=== PATIENT | female | born 1995 | race Caucasian/White ===

== ENCOUNTER 2018-02-14 10:20 | Emergency (ER) | payer OTHER ==
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
--- OUTSIDE RECORDS SUMMARY | 2018-02-14 10:23 | XMS REPORT | Summary of Care ---
:1995 Author Organization [facility] Address [address] [place] [address]- Encounter HQ Andrés_kimmie(FIN) [id number] Date(s): 03/31/17 - 03/31/[address] Professional Services provided by [facility] [place] [address]- Discharge Disposition: Home or Self Care Attending Physician: Wei Lock MD Vital Signs Most recent to oldest 1 2 3 [Reference Range]: Temperature Oral [96.4-99.1 97.6 DegF 97.8 DegF DegF] (03/31/17 4:39 AM) (03/31/17 1:56 AM) Blood Pressure [90-140/60-90 122/71 mmHg 120/55 mmHg 135/83 mmHg mmHg] (03/31/17 4:39 AM) (03/31/17 3:23 AM) (03/31/17 2:19 AM) Respiratory Rate [14-20 18 BRMIN 20 BRMIN 20 BRMIN BRMIN] (03/31/17 4:39 AM) (03/31/17 3:23 AM) (03/31/17 2:19 AM) Peripheral Pulse Rate 96 bpm 102 bpm 110 bpm [60-100 bpm] (03/31/17 4:39 AM) *HI* *HI* (03/31/17 3:23 AM) (03/31/17 2:19 AM) Problem List No data available for this section Allergies, Adverse Reactions, Alerts Substance Reaction Severity Status NKDA Active Medications morphine Sulfate 4 mg, Route: IVP, ONCE, kg, Priority: STAT, Start date: 03/31/17 2:23:00 [employer], Stop date: 03/31/17 2:23:00 [employer] Start Date: 03/31/17 Stop Date: 03/31/17 Status: Completedmorphine Sulfate 4 mg, Route: IVP, ONCE, kg, Priority: STAT, Start date: 03/31/17 3:16:00 [employer], Stop date: 03/31/17 3:16:00 [employer] Start Date: 03/31/17 Stop Date: 03/31/17 Status: Completed[place] 5/325 oral tablet 1 tab, Route: PO, Drug Form: TAB, kg, ONCE, STAT, Start date: 03/31/17 4:32:00 [employer], Stop date: 03/31/17 4:32:00 [employer] Start Date: 03/31/17 Stop Date: 03/31/17 Status: Completedtramadol 50 mg oral tablet 50 mg=1 tab, PO, Q6H, PRN Pain, X 10 day, # 20 tab, 0 Refill(s) Start Date: 03/31/17 Stop Date: 04/10/17 Status: OrderedZofran 4 mg, Route: IVP, Drug form: INJ, ONCE, kg, Priority: STAT, Start date: 2:23:00 [employer], Stop date: 03/31/17 2:23:00 [employer] Start Date: 03/31/17 Stop Date: 03/31/17 Status: Completed Results ELECTROLYTES Most recent to oldest [Reference Range]: 1 Sodium Lvl [135-145 mEq/L] 137 mEq/L (03/31/17 3:05 AM) Potassium Lvl [3.5-5.1 mEq/L] 3.7 mEq/L (03/31/17 3:05 AM) Chloride Lvl [95-109 mEq/L] 103 mEq/L (03/31/17 3:05 AM) CO2 [24-32 mEq/L] 25 mEq/L (03/31/17 3:05 AM) AGAP [10.0-20.0 mEq/L] 12.7 mEq/L (03/31/17 3:05 AM) CHEM PANEL Most recent to oldest [Reference Range]: 1 Creatinine Lvl [0.50-1.40 mg/dL] 0.76 mg/dL (03/31/17 3:05 AM) eGFR 113 mL/min/1.73m2 1 *NA* (03/31/17 3:05 AM) BUN [7-22 mg/dL] 11 mg/dL (03/31/17 3:05 AM) Glucose Lvl [70-99 mg/dL] 111 mg/dL *HI* (03/31/17 3:05 AM) Calcium Lvl [8.5-10.5 mg/dL] 8.8 mg/dL (03/31/17 3:05 AM) 1Result Comment: The eGFR is calculated using the CKD-EPI formula. In most young , healthy individualsthe eGFR will be >90 mL/min/1.73m2. The eGFR declines with age. An eGFR of 60-89 may be normal insome populations, particularly the elderly, for whom the CKD-EPI formula has not been extensively validated. Use of the eGFR is not recommended in the following populations: Individuals with unstable creatinine concentrations, including patients and those with serious co-morbid conditions. Patients with extremes in muscle mass or diet. The data above are obtained from the National Kidney Disease Education Program ( NKDEP) which additionally recommends that when the eGFR is used in patients with extremes of body mass index for purposesof drug dosing, the eGFR should be multiplied by the estimated BMI.IMMUNOLOGY Most recent to oldest [Reference Range]: 1 CDC HIV 4th GEN [Negative] Negative *NA* (03/31/17 9:20 AM) HEMATOLOGY Most recent to oldest [Reference Range]: 1 WBC [3.7-10.4 K/CMM] 14.3 K/CMM *HI* (03/31/17 3:05 AM) RBC [4.20-5.40 M/CMM] 4.23 M/CMM (03/31/17 3:05 AM) Hgb [12.0-16.0 g/dL] 12.9 g/dL (03/31/17 3:05 AM) Hct [36.0-48.0 %] 38.6 % (03/31/17 3:05 AM) MCV [80.0-98.0 fL] 91.2 fL (03/31/17 3:05 AM) MCH [27.0-31.0 pg] 30.5 pg (03/31/17 3:05 AM) MCHC [32.0-36.0 g/dL] 33.4 g/dL (03/31/17 3:05 AM) RDW [11.5-14.5 %] 13.6 % (03/31/17 3:05 AM) Platelet [133-450 K/CMM] 230 K/CMM (03/31/17 3:05 AM) MPV [7.4-10.4 fL] 8.6 fL (03/31/17 3:05 AM) Segs [45.0-75.0 %] 93.2 % *HI* (03/31/17 3:05 AM) Lymphocytes [20.0-40.0 %] 0.7 % *LOW* (03/31/17 3:05 AM) Monocytes [2.0-12.0 %] 5.8 % (03/31/17 3:05 AM) Basophils [0.0-1.0 %] 0.3 % (03/31/17 3:05 AM) Segs-Bands # [1.5-8.1 K/CMM] 13.3 K/CMM *HI* (03/31/17 3:05 AM) Lymphocytes # [1.0-5.5 K/CMM] 0.1 K/CMM *LOW* (03/31/17 3:05 AM) Monocytes # [0.0-0.8 K/CMM] 0.8 K/CMM (03/31/17 3:05 AM) RBC Morph Normal (03/31/17 3:05 AM) Plt Morph Normal (03/31/17 3:05 AM) PT [12.0-14.7 seconds] 14.2 seconds (03/31/17 3:05 AM) INR [0.85-1.17] 1.10 (03/31/17 3:05 AM) PTT [22.9-35.8 seconds] 24.8 seconds (03/31/17 3:05 AM) ACT (TEG) Rapid [86-118 seconds] 97 seconds (03/31/17 3:05 AM) [place] Rapid 0.3 minutes *NA* (03/31/17 3:05 AM) R-time Rapid [0.4-0.7 minutes] 0.5 minutes (03/31/17 3:05 AM) K-time Rapid [0.6-2.3 minutes] 0.9 minutes (03/31/17 3:05 AM) Angle Rapid [64-80 degrees] 78 degrees (03/31/17 3:05 AM) Max Amplitude Rapid [52-71 mm] 64 mm (03/31/17 3:05 AM) G-value Rapid [5.0-11.6 K d/sc] 8.9 K d/sc (03/31/17 3:05 AM) Estimated % Lysis Rapid [0.0-7.5 %] 3.8 % 1 (03/31/17 3:05 AM) 1Result Comment: "Significant Findings called to Kallie Jarquin_at 03/31/2017 04:11_ _by RM__.Read Back OK." Immunizations No data available for this section Procedures No data available for this section Social History Social History Type Response Smoking Status Never smoker; Previous treatment: None; Ready to change: No; Concerns about tobacco use in household: No; Exposure to Tobacco Smoke None; Cigarette Smoking Last 365 Days No; Reg Smoking Cessation Counseling No Assessment and Plan No data available for this section
--- OUTSIDE RECORDS SUMMARY | 2018-02-14 10:23 | XMS REPORT | Summary of Care ---
:1995 Author Name Cynthia Winchester Address Unavailable Unavailable , Care Team Providers Name Role Phone AVERY MULLEN Unavailable Unavailable Functional Status Name Dates Details Functional status health issues are not documented Status: Name Dates Details Cognitive status health issues are not documented Status: Problems Name Dates Details Acute right ankle pain (719.47, M25.571) Status: Active Fracture of medial malleolus, left, closed (824.0, S82.52XA) Status: Active Medications Name Dates Details Medications not documented Allergies and Adverse Reactions Name Dates Details Allergy history not documented Status: Procedures Procedure Dates Details [U] XRAY ANKLE MIN 3 VWS LEFT [id number] Date: 19-May-2017 Immunization Name Dates Details Immunizations not documented Social History Name Dates Details Unknown if ever smoked Vital Signs Date Test Result Details No Known Vitals to report Results Date Description Value Details [id number] [U] XRAY ANKLE MIN 3 VWS LEFT [id number] XR ANKLE MIN 3 VWS LEFT Images acquired, not reported on this accession number. Plan of Care Name Dates Details Planned Observations Planned Goals not documented Planned Encounters Appointment; AVERY THOMAS P.A. On: 20-May-2017 16:00 Interventions Provided Labs/Procedures/Imaging[U] XRAY ANKLE MIN 3 VWS LEFT [id number]; To Be Done: 20 May 2017 Instructions Name Dates Details Instructions not documented Encounters Appointment; AVERY THOMAS P.A. On: 08-Apr-2017 11:00 Encounter Diagnosis: Problem not documented Appointment; AVERY THOMAS P.A. On: 21-Apr-2017 13:15 Encounter Diagnosis: Problem not documented Appointment; AVERY THOMAS P.A. On: 22-Apr-2017 15:15 Encounter Diagnosis: Problem not documented Appointment; AVERY THOMAS P.A. On: 20-May-2017 16:00 Encounter Diagnosis: Problem not documented
--- NOTE | 2018-02-14 11:39 | EDPHYS ---
Physician Documentation [facility] Unit Name: Gladis eMza Age: 22 yrs Sex: Female : 1995 Arrival Date: 02/14/2018 Time: 10:23 Bed 12 Private MD: Jim Tolbert B ED Physician Leo Bob HPI: 02/14 11:25 This 22 yrs old Female presents to ER via Ambulatory with complaints of jmm Breast Problem. 11:25 breast pain. Onset: The symptoms/episode began/occurred gradually, 1 day(s) ago. This jmm is a 22 year old female with no chronic medical conditions that presents to the ED with complaints of breast pain. Patient states having mastitis with previous child. Patient denies fever but complains of chills. Patient states she is unable to express mild without a significant amount of pain. . 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 - Social history:: Smoking status: Patient/guardian denies using tobacco. - Ebola Screening: : No symptoms or risks identified at this time. ROS: 11:25 Constitutional: Negative for fever, chills, and weight loss, Cardiovascular: Negative jmm for chest pain, palpitations, and edema, Respiratory: Negative for shortness of breath, cough, wheezing, and pleuritic chest pain. 11:25 All other systems are negative. Exam: 11:25 Constitutional: This is a well developed, well nourished patient who is awake, alert, jmm and in no acute distress. Head/Face: atraumatic. Eyes: EOMI, no conjunctival erythema appreciated ENT: Moist Mucus Membranes Neck: Trachea midline, Supple 11:25 Cardiovascular: Regular rate and rhythm. No edema appreciated Respiratory: Normal respirations, no respiratory distress appreciated MS/ Extremity: Moves all extremities, no obvious deformities appreciated, no edema noted to the lower extremities Neuro: Awake and alert, normal gait Psych: Behavior is normal, Mood is normal, Patient is cooperative and pleasant 11:25 Chest/axilla: Breasts: engorged and diffusely tender to palpation, mild erythema noted to the left breast above the anderson. Vital Signs: 10:35 BP 118 / 78; Pulse 99; Resp 16 S; Temp 97.8(TE); Pulse Ox 99% on R/A; Weight 56.7 kg aa5 (R); Height 5 ft. 4 in. (162.56 cm) (R); Pain 7/10; 10:35 Body Mass Index 21.46 (56.70 kg, 162.56 cm) aa5 MDM: 11:05 Patient medically screened. [facility] 11:37 Data reviewed: vital signs, nurses notes. Counseling: I had a detailed discussion with [facility] the patient and/or guardian regarding: the historical points, exam findings, and any diagnostic results supporting the discharge/admit diagnosis, the need for outpatient follow up, to return to the emergency department if symptoms worsen or persist or if there are any questions or concerns that arise at home. 11:37 ED course: Labor and route sales delivery driver consulted patient in the ED. Patient prescribed [facility] dicloxacillin and advised to follow up with her ob for further evaluation. Patient understood and agrees with the plan of care. . Administered Medications: No medications were administered Disposition: 13:39 Co-signature as Attending Physician, Leo Bob MD. rn Disposition: 02/14/18 11:38 Discharged to Home. Impression: Breast engorgement of . - Condition is Stable. - Discharge Instructions: and Mastitis. - Prescriptions for Dicloxacillin 500 mg Oral Capsule - take 1 capsule by ORAL route every 6 hours for 10 days; 40 capsule. - Medication Reconciliation Form, Thank You Letter, Antibiotic Education, Prescription Opioid Use form. - Follow up: Jim Tolbert MD; When: 2 - 3 days; Reason: Recheck today's complaints, Continuance of care, Re-evaluation by your physician. Signatures: Hank Ramos PA PA [facility] Leo Bob MD MD rn Calderon, Audri, RN RN aa5 Olya Jacob RN RN hb Corrections: (The following items were deleted from the chart) 11:43 11:38 02/14/2018 11:38 Discharged to Home. Impression: Breast engorgement of . hb Condition is Stable. Forms are Medication Reconciliation Form, Thank You Letter, Antibiotic Education, Prescription Opioid Use. Follow up: Jim Tolbert; When: 2 - 3 days; Reason: Recheck today's complaints, Continuance of care, Re-evaluation by your physician. librado
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
[2018-02-14 11:47] VITALS: BP 118/78; TEMP 97.8; O2SAT 99
== END 2018-02-14 11:43 | disposition home or self-care (01) ==
LOC: ER 10:20
DX: O92.79 Other disorders of lactation (principal)
CPT/HCPCS: 99282

== ENCOUNTER 2019-07-27 18:21 | Emergency (ER) | payer SELFPAY ==
--- OUTSIDE RECORDS SUMMARY | 2019-07-27 18:23 | XMS REPORT | Summary of Care ---
:1995 Author Organization [facility] Address [address] [place] [id number] Care Team Providers Name Role Phone KodyrosemarieRinkuKayli Lydamian DELIVERY LEAD Primary Care Provider Reason for Visit Reason Comments LAB Encounter Details Date Type Department Care Team Description 06/23/2019 [facility], WHCNP [address] [place] [address] Neutropenia, unspecified type; [place] [facility], [facility] Thrombocytopenia, unspecified [address] [place] [address] Allergies No Known Allergiesdocumented as of this encounter (statuses as of 06/23/2019) Medications Medication Sig Dispensed Refills Start Date End Date Status LOESTRIN FE Take 1 tablet by 1 Package 2 05/27/2019 Active (MICROGESTIN FE 05/31) 1 mouth daily. mg-20 mcg (21)/75 mg (7) tabletIndications: Encounter for other general counseling or advice on contraception, Menorrhagia with irregular cycle documented as of this encounter (statuses as of 06/23/2019) Active Problems Problem Noted Date Encounter for other general counseling or advice on contraception 05/27/2019 Menorrhagia with irregular cycle 05/27/2019 Pap smear abnormality of cervix/human papillomavirus (HPV) positive 11/09/2018 LGSIL on Pap smear of cervix 11/09/2018 documented as of this encounter (statuses as of 06/23/2019) Resolved Problems Problem Noted Date Resolved Date Venereal disease contact 09/29/2018 05/27/2019 Echogenic focus of heart, , affecting care of mother, 06/25/20172019 antepartum Overview: Needs repeat usg around 08/10/17-order at next visit on 07/10/17. Follow up completed 08/06/17-no abnormal findings UTI in 06/13/2017 05/27/2019 Overview: ERASMO neg Susceptible to varicella (non-immune), currently 06/11/20172019 High risk , antepartum 06/10/2017 05/27/2019 Uterine size-date discrepancy, antepartum 06/10/2017 08/21/2017 Insufficient antepartum care 06/10/2017 05/27/2019 History of depression, currently 06/10/2017 05/27/2019 Tylenol ingestion 01/02/2013 06/10/2017 documented as of this encounter (statuses as of 06/23/2019) Immunizations Name Administration Dates Next Due HPV9 11/09/2018 Tdap 08/21/2017 documented as of this encounter Social History Tobacco Use Types Packs/Day Years Used Date Former Smoker Cigarettes 0.5 3 06/10/2014 - 04/25/2017 Smokeless Tobacco: Never Used Alcohol Use Drinks/Week oz/Week Comments No Sex Assigned at Date Recorded Not on file Job Start Date Occupation Industry Not on file Not on file Not on file Travel History Travel Start Travel End No recent travel history available. documented as of this encounter Last Filed Vital Signs Not on filedocumented in this encounter Plan of Treatment Date Type Specialty Care Team Description 08/26/2019 Office Visit [facility] Michelle Ponce, DELIVERY LEAD [address] [place] [address] [phone] Name Type Priority Associated Diagnoses Order Schedule CBC WITH DIFFERENTIAL LAB Routine Neutropenia, unspecified type Ordered: Health Maintenance Due Date Last Done Comments HPV VACCINES (2 - Female 09/03/2019 11/09/2018 Postponed from 3-dose series) 12/07/2018 (Refused) MENINGOCOCCAL B VACCINES (1 11/11/2019 Postponed from of 2 - Risk Bexsero 2-dose 2006 (Insurance / series) Financial) VARICELLA VACCINES (1 of 2 11/11/2019 Postponed from - 2-dose childhood series) 1997 (Insurance / Financial) CHLAMYDIA SCREENING 05/25/2020 05/25/2019, 03/31/2019, 03/18/2019, Additional history exists INFLUENZA VACCINE (#1) 2020 Postponed from 01/10/2019 (Refused) PAP SMEAR 02/11/2022 02/11/2019 DTaP,Tdap,and Td Vaccines 08/22/2027 08/21/2017 (2 - Td) MENINGOCOCCAL VACCINE Aged Out No longer eligible based on patient's age to complete this topic PNEUMOCOCCAL 0-64 YEARS Aged Out No longer eligible COMBINED SERIES based on patient's age to complete this topic documented as of this encounter Results Not on filedocumented in this encounter Visit Diagnoses Diagnosis Neutropenia, unspecified type Thrombocytopenia, unspecified documented in this encounter Insurance Payer Benefit Plan Subscriber ID Effective Phone Address Type / Group Dates PENDING SALE TO [facility] xxxxxxxxx 2018-Prese [phone] Medicaid WOMEN nt [address] [place] [address] [address] [place] (Home) [place] [address] documented as of this encounter Advance Directives Name Relationship Healthcare Agent Relationship Communication Ai Alejandrobrook Grandparent Primary healthcare agent
--- OUTSIDE RECORDS SUMMARY | 2019-07-27 18:23 | XMS REPORT | Summary of Care ---
:1995 Author Organization [facility] - Health Address [address] [place] [address] Care Team Providers Name Role Phone Kayli Erazo [facility] Primary Care Provider Encounter Details Date Type Department Care Team Description 11/11/2018 Patient Secure Msg [facility] MyChart Messages Doctor Unassigned, [address] [place] [address] [place] [address] [place] [address] [place] [address] Allergies No Known Allergiesdocumented as of this encounter (statuses as of 12/12/2018) Medications Medication Sig Dispensed Refills Start Date End Date Status busPIRone 15 mg tablet TK 1 T PO BID. 1 10/14/2018 Active LO LOESTRIN FE 1 mg-10 Take 1 tablet by 3 10/06/2018 Active mcg (24)/10 mcg (2) per mouth daily. tablet propranolol 10 mg Take 10 mg by 0 09/28/2018 Active tablet mouth 2 (two) times daily. SERTraline 50 mg tablet TK 1 T PO QHS 1 10/14/2018 Active documented as of this encounter (statuses as of 12/12/2018) Active Problems Problem Noted Date Pap smear abnormality of cervix/human papillomavirus (HPV) positive 11/09/2018 LGSIL on Pap smear of cervix 11/09/2018 Venereal disease contact 09/29/2018 Echogenic focus of heart, , affecting care of mother, antepartum 2017 Overview: Needs repeat usg around 08/10/17-order at next visit on 07/10/17. Follow up completed 08/06/17-no abnormal findings UTI in 06/13/2017 Overview: ERASMO neg Susceptible to varicella (non-immune), currently 06/11/2017 High risk , antepartum 06/10/2017 Insufficient antepartum care 06/10/2017 History of depression, currently 06/10/2017 documented as of this encounter (statuses as of 12/12/2018) Resolved Problems Problem Noted Date Resolved Date Uterine size-date discrepancy, antepartum 06/10/2017 08/21/2017 Tylenol ingestion 01/02/2013 06/10/2017 documented as of this encounter (statuses as of 12/12/2018) Immunizations Name Administration Dates Next Due HPV9 [...] Treatment Date Type Specialty Care Team Description 01/12/2019 [facility]2019 [facility] Health Maintenance Due Date Last Done Comments PAP SMEAR 2017 HPV VACCINES (2 - Female 12/07/2018 11/09/2018 3-dose series) INFLUENZA VACCINE 01/10/2019 CHLAMYDIA SCREENING 11/10/2019 11/09/2018, 09/29/2018, 06/10/2017 MENINGOCOCCAL B VACCINES (1 11/11/2019 Postponed from 2006 of 2 - Risk Bexsero 2-dose (Insurance / Financial) series) VARICELLA VACCINES (1 of 2 - 11/11/2019 Postponed from 2009 13+ 2-dose series) (Insurance / Financial) DTaP,Tdap,and Td Vaccines (2 08/22/2027 08/21/2017 - Td) MENINGOCOCCAL VACCINE Aged Out No longer eligible based on patient's age to complete this topic PNEUMOCOCCAL 0-64 YEARS Aged Out No longer eligible based COMBINED SERIES on patient's age to complete this topic documented as of this encounter Results Not on filedocumented in this encounter Insurance Payer Benefit Plan Subscriber ID Effective Phone Address Type / Group Dates [facility] xxxxxxxxx 2018-Prese [phone] Medicaid WOMEN nt [address] [place] [address] documented as of this encounter Advance Directives Name Relationship Healthcare Agent Relationship Communication Ai Santana Grandparent Primary healthcare agent
--- OUTSIDE RECORDS SUMMARY | 2019-07-27 18:23 | XMS REPORT | Summary of Care ---
:1995 Author Organization [facility] Address [address] [place] [address] Care Team Providers Name Role Phone KodyrosemarieRinkuKayli Lydamian SECURITY OPERATIONS ENGINEER Primary Care Provider Reason for Visit Reason Comments LAB Encounter Details Date Type Department Care Team Description 06/23/2019 Restaurant Floor Manager [facility] WHC[facility] [address] [place] [address] Neutropenia, unspecified type; [place] [facility], [facility] Thrombocytopenia, unspecified [address] [place] [address] Allergies No Known Allergiesdocumented as [...] 08/26/2019 Office Visit [facility] Michelle Ponce, SECURITY OPERATIONS ENGINEER [address] [place] [address] [phone] Name Type Priority Associated Diagnoses Date/Time CBC WITH DIFF LAB Routine Neutropenia, unspecified 06/23/2019 1:15 PM HYDRAULIC MINER BLASTING type CBC WITH DIFFERENTIAL LAB Routine Neutropenia, unspecified 06/23/2019 1: 15 PM HYDRAULIC MINER BLASTING type Health Maintenance Due Date Last Done Comments [...] ID Effective Phone Address Type / Group [facility] xxxxxxxxx 2018-Prese [phone] Medicaid WOMEN nt 2003 [place] [address] documented as of this encounter Advance Directives Name Relationship Healthcare Agent Relationship Communication Ai Alejandrobrook Grandparent Primary healthcare agent
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
--- OUTSIDE RECORDS SUMMARY | 2019-07-27 18:24 | XMS REPORT | Summary of Care ---
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 History of thyroid disorder [address] [place], [place] Em[place] A [address] [place], [place] [address] Allergies No Known Allergiesdocumented as of this encounter (statuses as of 05/25/2019) Medications Medication Sig Dispensed Refills Start Date End Date Status busPIRone 15 mg TK 1 T PO 1 10/14/2018 Active tablet BID. propranolol 10 mg Take 10 mg by 0 09/28/2018 Active tablet mouth 2 (two) times daily. SERTraline 50 mg TK 1 T PO QHS 1 10/14/2018 Active tablet LO LOESTRIN FE 1 Take 1 tablet 3 10/06/2018 05/25/2019 Discontinued mg-10 mcg (24)/10 by mouth mcg (2) per tablet daily. documented as of this encounter (statuses as of 05/25/2019) Active Problems Problem Noted Date Pap smear [...] as of this encounter (statuses as of 05/25/2019) Resolved Problems Problem Noted Date Resolved Date Uterine size-date discrepancy, antepartum 06/10/2017 08/21/2017 Tylenol ingestion 01/02/2013 06/10/2017 documented as of this encounter (statuses as of 05/25/2019) Immunizations Name Administration Dates Next Due HPV9 [...] Sign Reading Time Taken Comments Blood Pressure 126/81 05/25/2019 10:37 AM SCREEN TENDER Pulse 93 05/25/2019 10:37 AM SCREEN TENDER Temperature 36.6 C (97.8 F) 05/25/2019 10:37 AM SCREEN TENDER Respiratory Rate 16 05/25/2019 10:37 AM SCREEN TENDER Oxygen Saturation - - Inhaled Oxygen Concentration - - Weight 54.1 kg (119 lb 4 oz) 05/25/2019 10:37 AM SCREEN TENDER Height 162.6 cm (5' 4") 05/25/2019 10:37 AM SCREEN TENDER Body Mass Index 20.47 05/25/2019 10:37 AM SCREEN TENDER documented in this encounter Progress Notes Michelle Ponce, TORI - 05/25/2019 10:15 AM CST Chief complaint: Chief Complaint 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 Pt reports she went to the ER last year for heart palpitations and a panic attack and was told she had hyperthyroidism and was started on medication. When she followed up with a specialist after that ER visit, she was told she hadbeen diagnosed incorrectly and stopped the medication. For the last 3-4 months she has been having heavy, irregular menses. She reports it seems like she never stops bleeding. She did not start OCPs inNov2018 as recommended. Is not currently using contraception and desires to conceive. Histories OB History Para Term AB Living [...] file Gets together: Not on file Attends anabaptism service: Not on file Active member of [...] Activity Yes Partners: Male control/protection: Pill Labs Labs are pending. Radiology No new radiology. Allergies Gladis has No Known Allergies. Medications Gladis has a current medication list which includes the following prescription(s ): buspirone, propranolol, and sertraline. Review of Systems Constitutional: Negative. HENT: Negative. Respiratory: Negative. Cardiovascular: Negative. Gastrointestinal: Negative. Genitourinary: Negative. Neurological: Negative. Psychiatric/Behavioral: Negative. Hematological: Positive for cold intolerance. Endocrine: Positive for cold intolerance. BP 126/81 (BP Location: Right arm, Patient Position: Sitting, BP CUFF SIZE: Adult Medium) | Pulse 93 | Temp 36.6 C (97.8 F) (Oral) | Resp 16 | Ht 5 ' 4" (1.626 m) | Wt 119 lb 4 oz (54.1 kg) | BMI 20.47 kg/m Pregravid BMI: Could not be calculated Physical Exam Vitals reviewed. Constitutional: She is oriented to person, place, and time. She appears well- developed and well-nourished. Neck: No tenderness and no mass. No thyroid nodules and no thyromegaly palpated. Cardiovascular: Regular rate and rhythm. Pulmonary/Chest: Breath sounds clear to auscultation. Normal inspiratory effort. Neuro/Psychiatric: She has a normal mood and affect. She is oriented to person, place, and time. Skin: Skin normal. Assessment/Plan 1. History of thyroid disorder Discussed if thyroid levels abnormal, she will need f/u with PCP or endocrinology - THYROID STIMULATING HORMONE 2. Menorrhagia with irregular cycle If labs normal, discussed trial of OCPs for at least 3 months to regulate cycle - THYROID STIMULATING HORMONE - CBC WITH DIFF - CBC WITH DIFFERENTIAL Discussed treatment options. Reviewed patient instructions and provided printed copy. This visit did not involve counseling and coordination that comprised more than 50% of the visit time. documented in this encounter Plan of Treatment Name Type Priority Associated Diagnoses Date/Time THYROID STIMULATING LAB Routine History of thyroid 05/25/2019 10:55 AM HORMONE disorder SCREEN TENDER Menorrhagia with irregular cycle CBC WITH DIFF LAB Routine Menorrhagia with 05/25/2019 10:55 AM irregular cycle SCREEN TENDER CBC WITH DIFFERENTIAL LAB Routine Menorrhagia with 05/25/2019 10:55 AM irregular cycle SCREEN TENDER GC & CHLAMYDIA AMPLIFIED LAB Routine 05/25/2019 10:55 AM ASSAY SCREEN TENDER Health Maintenance Due Date Last Done Comments HPV VACCINES (2 - Female 12/07/2018 11/09/2018 3-dose series) INFLUENZA VACCINE (#1) 2019 MENINGOCOCCAL B VACCINES (1 11/11/2019 Postponed from of 2 - Risk Bexsero 2-dose 2006 (Insurance / series) Financial) VARICELLA VACCINES (1 of 2 11/11/2019 Postponed from - 2-dose childhood series) 1997 (Insurance / Financial) CHLAMYDIA SCREENING 03/31/2020 03/31/2019, 03/18/2019, 02/11/2019, Additional history exists PAP SMEAR 02/11/2022 02/11/2019 DTaP,Tdap,and Td Vaccines 08/22/2027 08/21/2017 (2 - Td) MENINGOCOCCAL VACCINE Aged Out No longer eligible based on patient's age to complete this topic PNEUMOCOCCAL 0-64 YEARS Aged Out No longer eligible COMBINED SERIES based on patient's age to complete this topic documented as of this encounter Results Not on filedocumented in this encounter Visit Diagnoses Diagnosis Menorrhagia with irregular cycle - Primary Excessive or frequent menstruation History of thyroid disorder documented in this encounter Insurance Payer Benefit Plan Subscriber ID Effective Phone Address Type / Group Dates [facility] xxxxxxxxx 2018-Ebony [phone] [address] Medicaid [place]OM[place] [id number] [place] [address] documented as of this encounter Advance Directives Name Relationship Healthcare Agent Relationship Communication Ai Santana Grandparent Primary healthcare agent
--- OUTSIDE RECORDS SUMMARY | 2019-07-27 18:24 | XMS REPORT | Summary of Care ---
:1996 Author Organization [facility] Address [address] [place] [address] Care Team Providers Name Role Phone FeliciaswathiRinkuKaylihowie Vizcarra [facility] Primary Care Provider Reason for Visit Reason Comments Lab Results Encounter Details Date Type Department Care Team Description 05/26/2019 Telephone [facility]- Michelle Whitley FNP Lab Results [address] [place] [address] [address] A [phone] [place] [address] Allergies No Known Allergiesdocumented as of this encounter (statuses as of 05/26/2019) Medications Medication Sig Dispensed Refills Start Date End Date Status busPIRone 15 mg tablet TK 1 T PO BID. 1 10/14/2018 Active propranolol 10 mg Take 10 mg by 0 09/28/2018 Active tablet mouth 2 (two) times daily. SERTraline 50 mg tablet TK 1 T PO QHS 1 10/14/2018 Active documented as of this encounter (statuses as of 05/26/2019) Active Problems Problem Noted Date Pap smear [...] as of this encounter (statuses as of 05/26/2019) Resolved Problems Problem Noted Date Resolved Date Uterine size-date discrepancy, antepartum 06/10/2017 08/21/2017 Tylenol ingestion 01/02/2013 06/10/2017 documented as of this encounter (statuses as of 05/26/2019) Immunizations Name Administration Dates Next Due HPV9 [...] Treatment Date Type Specialty Care Team Description 05/27/2019 Office Visit [facility] Michelle Ponce, OIL GAS AND PIPE TESTER [address] [place] [address] [phone] Name Type Priority Associated Diagnoses Order Schedule CBC WITH DIFF LAB Routine Neutropenia, unspecified type Expected: 2019, Expires: 05/26/2020 Health Maintenance Due Date Last Done Comments [...] encounter Visit Diagnoses Diagnosis Neutropenia, unspecified type - Primary documented in this encounter Insurance Payer Benefit Plan Subscriber ID Effective Phone Address Type / Group Dates [facility] xxxxxxxxx 2018-Prese [phone] Medicaid WOMEN nt [address] [place] [address] documented as of this encounter Advance Directives Name Relationship Healthcare Agent Relationship Communication Ai Santana Grandparent Primary healthcare agent
--- OUTSIDE RECORDS SUMMARY | 2019-07-27 18:24 | XMS REPORT | Summary of Care ---
:1996 Author Organization [facility] Address [address] [place] [address] Care Team Providers Name Role Phone Feliciaswathi Kayli Lyuchejose alberto [facility] Primary Care Provider Encounter Details Date Type Department Care Team Description 05/26/2019 [facility] [place] [address] [place] [address] [place], [place] [address] Allergies No Known Allergiesdocumented as of this [...] filedocumented in this encounter Plan of Treatment Health Maintenance Due Date Last Done Comments [...] Phone Address Type / Group Dates [facility] xxxxxxxxx 2018-Prese [phone] [address] Medicaid WOMEN nt [address] [place] [address] documented as of this encounter Advance Directives Name Relationship Healthcare Agent Relationship Communication Ai Santana Grandparent Primary healthcare agent
--- OUTSIDE RECORDS SUMMARY | 2019-07-27 18:24 | XMS REPORT | Summary of Care ---
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 Encounter Details Date Type Department Care Team Description [facility], Menorrhagia with irregular cycle (Primary Dx); [facility] History of thyroid disorder [address] [place], [place] [address] [place], [place] [address] Allergies No Known Allergiesdocumented as of this [...] Comments Blood Pressure 126/81 05/25/2019 10:37 AM RESISTOR WINDER Pulse 93 05/25/2019 10:37 AM RESISTOR WINDER Temperature 36.6 C (97.8 F) 05/25/2019 10:37 AM RESISTOR WINDER Respiratory Rate 16 05/25/2019 10:37 AM RESISTOR WINDER Oxygen Saturation - - Inhaled Oxygen Concentration - - Weight 54.1 kg (119 lb 4 oz) 05/25/2019 10:37 AM RESISTOR WINDER Height 162.6 cm (5' 4") 05/25/2019 10:37 AM RESISTOR WINDER Body Mass Index 20.47 05/25/2019 10:37 AM RESISTOR WINDER documented in this encounter Progress Notes Michelle Ponce, TORI - 05/25/2019 10:15 AM CST Chief complaint: Chief Complaint 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 HPI Gladis Meza is a 23 [...] file Gets together: Not on file Attends voodoo service: Not on file Active member of [...] of thyroid 05/25/2019 10:55 AM HORMONE disorder 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 WINDER Menorrhagia with irregular cycle CBC WITH DIFF LAB Routine Menorrhagia with 05/25/2019 10:55 AM irregular cycle RESISTOR WINDER CBC WITH DIFFERENTIAL LAB Routine Menorrhagia with 05/25/2019 10:55 AM irregular cycle RESISTOR WINDER GC & CHLAMYDIA AMPLIFIED LAB Routine 05/25/2019 10:55 AM ASSAY RESISTOR WINDER Health Maintenance Due Date Last Done Comments [...] Phone Address Type / Group Dates [facility] xxxxxxxxx 2018-Ebony [phone] [address] Medicaid [place]OM[place] [id number] [place] [address] documented as of this encounter Advance Directives Name Relationship Healthcare Agent Relationship Communication Ai Santana Grandparent Primary healthcare agent
--- OUTSIDE RECORDS SUMMARY | 2019-07-27 18:25 | XMS REPORT | Summary of Care ---
:1995 Author Organization [facility] - Health Address [address] [place] [address] Care Team Providers Name Role Phone Kayli Erazo [facility] Primary Care Provider Encounter Details Date Type Department Care Team Description 03/18/2019 Orders Only [facility] Doctor Unassigned, No 301 [facility] Name [place] [phone] [place] [phone] Allergies No Known Allergiesdocumented as of this encounter (statuses as of 05/28/2019) Medications No known medicationsdocumented as of this encounter (statuses as of 05/28/2019) Active Problems Problem Noted Date Encounter for other general counseling or advice on contraception 05/27/2019 Menorrhagia with irregular cycle 05/27/2019 Pap smear abnormality of cervix/human papillomavirus (HPV) positive 11/09/2018 LGSIL on Pap smear of cervix 11/09/2018 documented as of this encounter (statuses as of 05/28/2019) Resolved Problems Problem Noted Date Resolved Date [...] as of this encounter (statuses as of 05/28/2019) Immunizations Name Administration Dates Next Due HPV9 [...] Date Type Specialty Care Team Description 06/23/2019 Radio Maintainer Visit [facility] 08/26/2019 Office Visit OB Satellites Michelle Ponce, ETHANOL MAINTENANCE MECHANIC [address] [place] [place] [address] [phone] Health Maintenance Due Date Last Done Comments [...] Procedure Name Priority Date/Time Associated Diagnosis Comments [id number] CONSENT Routine 03/18/2019 12:01 AM TITLE I MATH TUTOR documented in this encounter Results Not on filedocumented in this encounter Insurance Payer Benefit Plan Subscriber ID Effective Phone Address Type / Group Dates [facility] xxxxxxxxx 2018-Ebony [phone] [address] Medicaid WOMEN nt [address] [place] [address] documented as of this encounter Advance Directives Name Relationship Healthcare Agent Relationship Communication Ai Alejandrobrook Grandparent Primary healthcare agent
--- OUTSIDE RECORDS SUMMARY | 2019-07-27 18:25 | XMS REPORT | Summary of Care ---
:1995 Author Organization [facility] Address [address] [place] [address] Care Team Providers Name Role Phone KodyrosemarieRinkuKayli Teresaemerita [facility] Primary Care Provider Reason for Visit Reason Comments Lab Results Encounter Details Date Type Department Care Team Description 06/24/2019 Telephone [facility]- Michelle Whitley FNP Lab Results [address] [place] [address] Emre A [phone] [place] [address] Allergies No Known Allergiesdocumented as of this encounter (statuses as of 06/25/2019) Medications Medication Sig Dispensed Refills Start Date End Date Status LOESTRIN FE Take 1 tablet by 1 Package 2 05/27/2019 Active (MICROGESTIN FE 05/31) 1 mouth daily. mg-20 mcg (21)/75 mg (7) tabletIndications: Encounter for other general counseling or advice on contraception, Menorrhagia with irregular cycle documented as of this encounter (statuses as of 06/25/2019) Active Problems Problem Noted Date Encounter for other general counseling or advice on contraception 05/27/2019 Menorrhagia with irregular cycle 05/27/2019 Pap smear abnormality of cervix/human papillomavirus (HPV) positive 11/09/2018 LGSIL on Pap smear of cervix 11/09/2018 documented as of this encounter (statuses as of 06/25/2019) Resolved Problems Problem Noted Date Resolved Date [...] as of this encounter (statuses as of 06/25/2019) Immunizations Name Administration Dates Next Due HPV9 [...] 08/26/2019 Office Visit OB Satellites Michelle Ponce, PROGRAM DIR [address] [place] [address] [phone] Health Maintenance Due Date Last Done Comments [...] Effective Phone Address Type / Group Dates [facility] xxxxxxxxx 2018-Prese [phone] [address] Medicaid WOMEN nt [address] [place] [address] documented as of this encounter Advance Directives Name Relationship Healthcare Agent Relationship Communication Ai Santana Grandparent Primary healthcare agent
--- OUTSIDE RECORDS SUMMARY | 2019-07-27 18:25 | XMS REPORT | Summary of Care ---
:1996 Author Organization [facility] Address [address] [place] [address] Care Team Providers Name Role Phone Kayli Erazo [facility] Primary Care Provider Reason for Visit Reason Comments STD Testing Encounter Details Date Type Department Care Team Description [facility], Acute cystitis with hematuria (Primary Dx); [facility] Menorrhagia with irregular cycle; [address] Influenza B; [place], [place] Emre A Screen for STD (sexually transmitted disease) [phone] [place] [phone] Allergies No Known Allergiesdocumented as of this encounter (statuses as of 07/06/2019) Medications Medication Sig Dispensed Refills Start Date End Date Status cephALEXin Take 1 capsule 21 capsule 0 07/04/2019 07/11/2019 Active (KEFLEX) 500 mg by mouth 3 capsuleIndications (three) times : Acute cystitis daily for 7 without hematuria days. megestrol 40 mg Take 1 tablet 28 tablet 0 07/04/2019 07/11/2019 Active tabletIndications: by mouth 2 Menorrhagia with (two) times irregular cycle daily Then 1 tablet by mouth daily for 14 days. LOESTRIN FE Take 1 tablet 1 Package 2 05/27/2019 07/06/2019 Discontinued (MICROGESTIN FE by mouth 05/31) 1 mg-20 mcg daily. (21)/75 mg (7) tabletIndications: Encounter for other general counseling or advice on contraception, Menorrhagia with irregular cycle documented as of this encounter (statuses as of 07/06/2019) Active Problems Problem Noted Date Influenza B 07/06/2019 Acute cystitis with hematuria 07/06/2019 Encounter for other general counseling or advice on contraception 05/27/2019 Menorrhagia with irregular cycle 05/27/2019 Pap smear abnormality of cervix/human papillomavirus (HPV) positive 11/09/2018 LGSIL on Pap smear of cervix 11/09/2018 documented as of this encounter (statuses as of 07/06/2019) Resolved Problems Problem Noted Date Resolved Date [...] as of this encounter (statuses as of 07/06/2019) Immunizations Name Administration Dates Next Due HPV9 [...] Sign Reading Time Taken Comments Blood Pressure 118/75 07/06/2019 9:45 AM PAINT PREPARER Pulse 102 07/06/2019 9:45 AM PAINT PREPARER Temperature 37.2 C (98.9 F) 07/06/2019 9:45 AM PAINT PREPARER Respiratory Rate 16 07/06/2019 9:45 AM PAINT PREPARER Oxygen Saturation - - Inhaled Oxygen Concentration - - Weight 54 kg (119 lb 1 oz) 07/06/2019 9:45 AM PAINT PREPARER Height 162.6 cm (5' 4") 07/06/2019 9:45 AM PAINT PREPARER Body Mass Index 20.44 07/06/2019 9:45 AM PAINT PREPARER documented in this encounter Progress Notes Michelle Ponce, GENERAL INTERNIST AND PHYSICIAN LEADER - 07/06/2019 9:30 AM CST Chief complaint: Chief Complaint Patient presents with STD Testing HPI Gladis Meza is a 23 year old here primarily requesting STD testing. Pt reports her ex had sex with someone else, so she also had sex with someone else. She denies any current vaginal complaints, however reports she is using OTC monistat at this time. She was seen in the ER on 06/24/19 and tested + for influenza, outside of window for tamiflu. She is also being treated for a UTI and istaking Keflex. Reports she was given megestrol Rx at the ER for continued vaginal bleeding. She was started on OCPs in May, however reports they made her feel "hormonal and crazy" so she stopped them. Histories OB History Para Term AB Living [...] Last attempt to quit: 04/25/2017 Years since quittin.1 Smokeless tobacco: Never Used Substance and Sexual Activity Alcohol use: No Drug use: No Sexual activity: Yes Partners: Male control/protection: Pill Lifestyle Physical activity: Days per week: Not on file Minutes per session: Not on file Stress: Not on file Relationships Social connections: Talks on phone: Not on file Gets together: Not on file Attends jainism service: Not on file Active member of [...] Pill Labs I have reviewed the patient's labs., Labs are pending. and Admission on 07/04/2019, Discharged on 07/04/2019 Component Date Value Streptococcus pyogenes (* 07/04/2019 Negative Influenza A 07/04/2019 Negative Influenza B 07/04/2019 Positive* APPEARANCE 07/04/2019 Cloudy* COLOR 07/04/2019 Yellow PH 07/04/2019 5.0 SP GRAVITY 07/04/2019 1.025 GLU U QUAL 07/04/2019 Normal BLOOD 07/04/2019 3+* KETONES 07/04/2019 5 mg/dL* PROTEIN 07/04/2019 30 mg/dL* UROBILIN 07/04/2019 Normal BILIRUBIN 07/04/2019 Negative NITRITE 07/04/2019 Negative LEUK YESICA 07/04/2019 500/uL* RBC/HPF 07/04/2019 18* WBC/HPF 07/04/2019 132* BACTERIA 07/04/2019 Few* MUCOUS 07/04/2019 Slight* SQ EPITH 07/04/2019 58 Throat Culture 07/04/2019 No Beta-Hemolytic Streptococcus isolated URINE CULTURE 07/04/2019 10,000 - 100,000 CFU/mL mixed aerobic organisms - suggests endogenous microbial contamination Package 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 Room Service Runner Visit on 06/23/2019 Component Date Value WBC 06/23/2019 3.53* RBC 06/23/2019 4.29 HGB 06/23/2019 12.9 HCT 06/23/2019 40.2 MCV 06/23/2019 93.7 MCH 06/23/2019 30.1 MCHC 06/23/2019 32.1 RDW-SD 06/23/2019 42.8 RDW-CV 06/23/2019 12.5 PLT 06/23/2019 278 MPV 06/23/2019 11.1 NRBC/100 WBC 06/23/2019 0.0 NRBC x10^3 06/23/2019 <0.01 GRAN MAT (NEUT) % 06/23/2019 80.5 IMM GRAN % 06/23/2019 0.30 LYMPH % 06/23/2019 8.5 MONO % 06/23/2019 9.3 EOS % 06/23/2019 0.8 BASO % 06/23/2019 0.6 GRAN MAT x10^3(ANC) 06/23/2019 2.84 IMM GRAN x10^3 06/23/2019 <0.03 LYMPH x10^3 06/23/2019 0.30* MONO x10^3 06/23/2019 0.33 EOS x10^3 06/23/2019 0.03 BASO x10^3 06/23/2019 <0.03 Radiology No new radiology. Allergies Gladis has No Known Allergies. Medications Gladis has a current medication list which includes the following prescription(s ): cephalexin and megestrol. Review of Systems Constitutional: Negative. HENT: Positive for congestion. Respiratory: Positive for cough. Negative for shortness of breath and wheezing. Cardiovascular: Negative. Gastrointestinal: Negative. Genitourinary: Negative. Skin: Negative. Neurological: Negative. BP 118/75 (BP Location: Right arm, Patient Position: Sitting, BP CUFF SIZE: Adult Medium) | Pulse 102 | Temp 37.2 C (98.9 F) (Oral) | Resp 16 | Ht 5 ' 4" (1.626 m) | Wt 119 lb 1 oz (54 kg) | BMI 20.44 kg/m Pregravid BMI: Could not be calculated Physical Exam Vitals reviewed. Constitutional: She appears well-developed and well-nourished. Her body habitus is normal. Cardiovascular: Regular rate and rhythm. Pulmonary/Chest: Breath sounds clear to auscultation. Normal inspiratory effort. Cough present Genitourinary Comments: Patient declines pelvic exam Assessment/Plan 1. Menorrhagia with irregular cycle Continue megestrol as prescribed by ER RTC if not improved 2. Influenza B Patient reports symptoms improving 3. Screen for STD (sexually transmitted disease) Reviewed safe sex practices - HIV 1/2 AG-AB WITH REFLEX - GALV ONLY - SYPHILIS IGG/IGM - GC & CHLAMYDIA AMPLIFIED ASSAY - TRICHOMONAS AMPLIFIED ASSAY 4. Acute cystitis with hematuria Complete Keflex Increase fluid intake Return to clinic in February for WWE Discussed treatment options. Reviewed patient instructions and provided printed copy. This visit did not involve counseling and coordination that comprised more than 50% of the visit time. documented in this encounter Plan of Treatment Date Type Specialty Care Team Description 08/26/2019 Office Visit OB Satellites Michelle Ponce FNP [address] [facility] [place], [place] [phone] Name Type Priority Associated Diagnoses Date/Time HIV 1/2 AG-AB WITH REFLEX LAB Routine Screen for STD (sexually 07/06/2019 10:15 AM transmitted disease) PAINT PREPARER GALV ONLY - SYPHILIS LAB Routine Screen for STD (sexually 07/06/2019 10:15 AM IGG/IGM transmitted disease) PAINT PREPARER GC & CHLAMYDIA AMPLIFIED LAB Routine Screen for STD (sexually 07/06/2019 10 :15 AM ASSAY transmitted disease) PAINT PREPARER TRICHOMONAS AMPLIFIED LAB Routine Screen for STD (sexually 07/06/2019 10: 15 AM ASSAY transmitted disease) PAINT PREPARER Health Maintenance Due Date Last Done Comments [...] filedocumented in this encounter Visit Diagnoses Diagnosis Acute cystitis with hematuria - Primary Acute cystitis Menorrhagia with irregular cycle Excessive or frequent menstruation Influenza B Influenza with other respiratory manifestations Screen for STD (sexually transmitted disease) Screening examination for venereal disease documented in this encounter Insurance Payer Benefit Plan Subscriber ID Effective Phone Address Type / Group Dates [facility] xxxxxxxxx 2018-Prese [phone] [address] Medicaid WOMEN nt [address] [place] [address] documented as of this encounter Advance Directives Name Relationship Healthcare Agent Relationship Communication Ai Alejandrobrook Grandparent Primary healthcare agent
--- OUTSIDE RECORDS SUMMARY | 2019-07-27 18:25 | XMS REPORT | Summary of Care ---
:1996 Author Organization [facility] - Health Address [address] [place], [place] [address] Care Team Providers Name Role Phone Kayli Erazo Primary Care Provider Reason for Visit Reason Comments Fever Cough Sore Throat Pain Auth/Cert Status Reason Specialty Diagnoses / Referred By Referred To Procedures Contact Contact [facility] [address] [place] [address] [place] [phone] Encounter Details Date Type Department Care Team Description 07/04/2019 Emergency ADC-Emergency Kain Liriano DO Menorrhagia with irregular cycle (Primary Dx); Department [address] [place] [address]. Fever, unspecified fever cause; [address] [place] [address] RT 0714 Influenza-like illness; [place] [phone] [place], [place] [address] Acute cystitis without hematuria; [phone] Influenza B Allergies No Known Allergiesdocumented as of this encounter (statuses as of 07/04/2019) Medications Medication Sig Dispensed Refills Start Date End Date Status LOESTRIN FE Take 1 tablet by 1 Package 2 05/27/2019 Active (MICROGESTIN FE 05/31) mouth daily. 1 mg-20 mcg (21)/75 mg (7) tabletIndications: Encounter for other general counseling or advice on contraception, Menorrhagia with irregular cycle cephALEXin (KEFLEX) Take 1 capsule 21 capsule 0 07/04/2019 07/11/2019 Active 500 mg by mouth 3 capsuleIndications: (three) times Acute cystitis daily for 7 without hematuria days. megestrol 40 mg Take 1 tablet by 28 tablet 0 07/04/2019 07/11/2019 Active tabletIndications: mouth 2 (two) Menorrhagia with times daily Then irregular cycle 1 tablet by mouth daily for 14 days. documented as of this encounter (statuses as of 07/04/2019) Active Problems Problem Noted Date Encounter for other general counseling or advice on contraception 05/27/2019 Menorrhagia with irregular cycle 05/27/2019 Pap smear abnormality of cervix/human papillomavirus (HPV) positive 11/09/2018 LGSIL on Pap smear of cervix 11/09/2018 documented as of this encounter (statuses as of 07/04/2019) Resolved Problems Problem Noted Date Resolved Date [...] as of this encounter (statuses as of 07/04/2019) Immunizations Name Administration Dates Next Due HPV9 [...] Sign Reading Time Taken Comments Blood Pressure 111/72 07/04/2019 4:00 PM BREAKER OPERATOR Pulse 119 07/04/2019 4:00 PM BREAKER OPERATOR Temperature 37.4 C (99.4 F) 07/04/2019 3:09 PM BREAKER OPERATOR Respiratory Rate 20 07/04/2019 4:00 PM BREAKER OPERATOR Oxygen Saturation 100% 07/04/2019 4:00 PM BREAKER OPERATOR Inhaled Oxygen Concentration - - Weight 52.6 kg (116 lb) 07/04/2019 3:09 PM BREAKER OPERATOR Height 157.5 cm (5' 2") 07/04/2019 3:09 PM BREAKER OPERATOR Body Mass Index 21.22 07/04/2019 3:09 PM BREAKER OPERATOR documented in this encounter Discharge Instructions Kain Justin DO - 07/04/2019 DIAGNOSIS Diagnoses that have been ruled out: None Diagnoses that are still under consideration: None Final diagnoses: Menorrhagia with irregular cycle Fever, unspecified fever cause Influenza-like illness Acute cystitis without hematuria Influenza B NO LIFE-THREATENING FINDINGS ON TODAY'S EXAM. PROCEDURES IN THE ER TODAY: Orders Placed This Encounter Procedures RAPID STREP SCREEN FOR GROUP A ADC,CLC OR LCC ONLY - INFLUENZA A & B DIRECT ANTIGEN URINALYSIS THROAT CULTURE URINE CULTURE MEDICATIONS ADMINISTERED IN THE ER TODAY AND DISCHARGE MEDICATIONS: Orders Placed This Encounter Medications ibuprofen (IBU) tablet 600 mg dexamethasone (DECADRON PHOSPHATE) injection 10 mg cefTRIAXone (ROCEPHIN) 1,000 mg in NaCl 0.9% (NS) 50 mL MINI-BAG cephALEXin (KEFLEX) 500 mg capsule megestrol 40 mg tablet FOLLOW-UP RECOMMENDATIONS: RECOMMEND FOLLOW-UP WITH A PRIMARY CARE PROVIDER OR SPECIALIST IN 2-5 DAYS, ESPECIALLY IF NO IMPROVEMENT IN SYMPTOMS. MAY FOLLOW-UP WITH A PROVIDER OF YOUR CHOICE, SUCH : 1. A PHYSICIAN OF YOUR CHOICE 2. [facility], . LOCATIONS IN [facility] 3. [facility], [address] [place] [address]; OR, IF YOU WISH TO FOLLOW-UP WITHIN THE [facility], MAY TRY THESE OPTIONS (CLINIC APPOINTMENTS AVAILABLE ON [id number] BASIS): 1. SCHEDULE AN APPOINTMENT ONLINE AT WWW[facility] 2. OR CALL THE [facility] AT OR 3. OR CALL YOUR [facility] PHYSICIAN'S OFFICE DIRECTLY IF YOU ARE ALREADY AN ESTABLISHED [facility] PATIENT. RETURN TO ER FOR WORSENING OF SYMPTOMS. AttachmentsThe following attachments cannot be sent through Care Everywhere.( Influenza), The Flu (Taiwanese)Urinary Tract Infections (UTIs), Understanding ( Taiwanese)Uterine Bleeding, Understanding (Taiwanese)documented in this encounter Plan of Treatment Date Type Specialty Care Team Description 07/06/2019 Office Visit OB Satellites Michelle Ponce, TORI [address] [place] [address] [phone] 08/26/2019 Office Visit OB Michelle Whaley, TORI [address] [place], [place] [address] Name Type Priority Associated Diagnoses Date/Time THROAT CULTURE LAB STAT Influenza-like illness 07/04/2019 3:59 PM BREAKER OPERATOR URINE CULTURE LAB STAT Fever, unspecified fever cause 07/04/2019 4:49 PM BREAKER OPERATOR Name Type Priority Associated Diagnoses Order Schedule THROAT CULTURE LAB Routine Influenza-like illness ONCE for 1 Occurrences starting 07/04/2019 until 07/04/2019 URINE CULTURE LAB Routine Fever, unspecified fever ONCE for 1 Occurrences cause starting 07/04/2019 until 07/04/2019 Health Maintenance Due Date Last Done Comments [...] encounter Procedures Procedure Name Priority Date/Time Associated Comments Diagnosis ADC,CLC OR LCC ONLY STAT 07/04/2019 3:59 PM Influenza-like Results for this - INFLUENZA A & B BREAKER OPERATOR illness procedure are in DIRECT ANTIGEN the results section. RAPID STREP SCREEN STAT 07/04/2019 3:59 PM Influenza-like Results for this FOR GROUP A BREAKER OPERATOR illness procedure are in the results section. URINALYSIS STAT 07/04/2019 3:59 PM Influenza-like Results for this BREAKER OPERATOR illness procedure are in the results section. NOTICE OF PRIVACY Routine 07/04/2019 2:58 PM PRACTICES BREAKER OPERATOR documented in this encounter Results URINALYSIS (07/04/2019 3:59 PM BREAKER OPERATOR) APPEARANCE Cloudy (A) Clear [facility] COLOR Yellow Yellow [facility] PH 5.0 4.8 - 8.0 [facility] SP GRAVITY 1.025 1.003 - 1.030 [facility] GLU U QUAL Normal Normal [facility] BLOOD 3+ (A) Negative [facility] KETONES 5 mg/dL (A) Negative [facility] PROTEIN 30 mg/dL (A) Negative [facility] UROBILIN Normal Normal [facility] BILIRUBIN Negative Negative [facility] NITRITE Negative Negative [facility] LEUK YESICA 500/uL (A) Negative [facility] RBC/HPF 18 (H) 0 - 3 HPF [facility] WBC/HPF 132 (H) 0 - 5 HPF [facility] BACTERIA Few (A) Negative [facility] MUCOUS Slight (A) Negative LPF [facility] SQ EPITH 58 HPF [facility] Specimen Urine - URINE, CLEAN CATCH Performing Organization Address City/State/Zipcode Phone Number [facility] CLIA: [id number], [address] [place] [address] ADC,CLC OR LCC ONLY - INFLUENZA A & B DIRECT ANTIGEN (07/04/2019 3:59 PM BREAKER OPERATOR) Influenza A Negative Negative [facility] Influenza B Positive (A) Negative [facility] Specimen Swab - NARE, LEFT SIDE Performing Organization Address City/[facility]/Zipcode Phone Number [facility] CLIA: [id number], [address] [place] [address] RAPID STREP SCREEN FOR GROUP A (07/04/2019 3:59 PM BREAKER OPERATOR) Streptococcus pyogenes Negative Negative [facility] (group A) antigen [facility] Specimen Swab - THROAT Performing Organization Address [facility] Phone Number [facility] CLIA: [id number], [address] [place] [address] documented in this encounter Visit Diagnoses Diagnosis Menorrhagia with irregular cycle - Primary Excessive or frequent menstruation Fever, unspecified fever cause Influenza-like illness Influenza with other respiratory manifestations Acute cystitis without hematuria Acute cystitis Influenza B Influenza with other respiratory manifestations documented in this encounter Administered Medications Medication Order MAR Action Action Date Dose Rate Site cefTRIAXone (ROCEPHIN) 1,000 mg Given 07/04/2019 4:50 PM BREAKER OPERATOR 1,000 mg in NaCl 0.9% (NS) 50 mL MINI-BAG 1,000 mg, IV Piggyback, ONCE, 1 dose, 07/04/19 at 1745, 50 mL, Reason for Anti-Infective: Empiric Therapy for Suspected Infection, Empiric Therapy Site: Skin / Soft tissue, Duration of therapy: 72 hours, clergy member approving Restricted medication: KAIN LIRIANO dexamethasone (DECADRON PHOSPHATE) injection Given 07/04/2019 3:58 PM BREAKER OPERATOR 10 mg 10 mg 10 mg, Oral, ONCE, 1 dose, 07/04/19 at 1645, Routine ibuprofen (IBU) tablet 600 mg Given 07/04/2019 3:58 PM BREAKER OPERATOR 600 mg 600 mg, Oral, ONCE, 1 dose, 07/04/19 at 1645, NO documented in this encounter Advance Directives Name Relationship Healthcare Agent Relationship Communication Ai Stewartok Grandparent Primary healthcare agent
--- OUTSIDE RECORDS SUMMARY | 2019-07-27 18:25 | XMS REPORT | Summary of Care ---
:[address] [facility] - Health Address [address] [place] [address] Care Team Providers Name Role Phone Kayli Erazo [facility] Primary Care Provider Encounter Details Date Type Department Care Team Description 07/04/[address] [facility] Doctor Unassigned, No [address] [facility] Name [place] [phone] [place] [address] Allergies No Known Allergiesdocumented as of this [...] Care Team Description 07/06/2019 Office Visit OB Michelle Whaley, TORI [address] [place] [address] 08/26/2019 Office Visit OB Michelle Whaley FNP [address] [place] [address] Health Maintenance Due Date Last Done Comments [...] Procedure Name Priority Date/Time Associated Diagnosis Comments CONSENT/REFUSAL FOR Routine 07/04/2019 2:58 PM SENIOR PHYSICAL THERAPIST DIAGNOSIS AND TREATMENT documented in this encounter Results Not on filedocumented in this encounter Insurance Payer Benefit Plan Subscriber ID Effective Phone Address Type / Group Dates [facility] x[facility]-Prese [phone] Medicaid WOMEN nt [address] [place] [address] documented as of this encounter Advance Directives Name Relationship Healthcare Agent Relationship Communication Ai Alejandrobrook Grandparent Primary healthcare agent
--- OUTSIDE RECORDS SUMMARY | 2019-07-27 18:25 | XMS REPORT | Summary of Care ---
:1995 Author Organization [facility] Address [address] [place] [id number] Care Team Providers Name Role Phone Kayli Erazo [facility] Primary Care Provider Reason for Visit Reason Comments STD Testing Encounter Details Date Type Department Care Team Description [facility], Acute cystitis with hematuria (Primary Dx); [facility] Menorrhagia with irregular cycle; [address] Influenza B; [place], [place] Emre A Screen for STD (sexually transmitted disease) [id number] [place] [id number] Allergies No Known Allergiesdocumented as of this [...] Comments Blood Pressure 118/75 07/06/2019 9:45 AM MIRROR FRAMER Pulse 102 07/06/2019 9:45 AM MIRROR FRAMER Temperature 37.2 C (98.9 F) 07/06/2019 9:45 AM MIRROR FRAMER Respiratory Rate 16 07/06/2019 9:45 AM MIRROR FRAMER Oxygen Saturation - - Inhaled Oxygen Concentration - - Weight 54 kg (119 lb 1 oz) 07/06/2019 9:45 AM MIRROR FRAMER Height 162.6 cm (5' 4") 07/06/2019 9:45 AM MIRROR FRAMER Body Mass Index 20.44 07/06/2019 9:45 AM MIRROR FRAMER documented in this encounter Progress Notes Michelle Ponce, SAFETY DEPOSIT BOXES CUSTODIAN - 07/06/2019 9:30 AM CST Chief complaint: [...] file Gets together: Not on file Attends caodaism service: Not on file Active member of [...] aerobic organisms - suggests endogenous microbial contamination Funding Coordinator Visit on 06/23/2019 Component Date Value WBC [...] Michelle Ponce FNP [address] [facility] [place], [place] [address] Name Type Priority Associated Diagnoses Date/Time HIV 1/2 AG-AB WITH REFLEX LAB Routine Screen for STD (sexually 07/06/2019 10:15 AM transmitted disease) MIRROR FRAMER GALV ONLY - SYPHILIS LAB Routine Screen for STD (sexually 07/06/2019 10:15 AM IGG/IGM transmitted disease) MIRROR FRAMER GC & CHLAMYDIA AMPLIFIED LAB Routine Screen for STD (sexually 07/06/2019 10 :15 AM ASSAY transmitted disease) MIRROR FRAMER TRICHOMONAS AMPLIFIED LAB Routine Screen for STD (sexually 07/06/2019 10: 15 AM ASSAY transmitted disease) MIRROR FRAMER Health Maintenance Due Date Last Done Comments [...] Effective Phone Address Type / Group Dates [facility] xxxxxxxxx 2018-Prese [phone] Medicaid WOMEN nt [id number] [place] [address] documented as of this encounter Advance Directives Name Relationship Healthcare Agent Relationship Communication Ai Alejandrobrook Grandparent Primary healthcare agent
--- OUTSIDE RECORDS SUMMARY | 2019-07-27 18:25 | XMS REPORT | Summary of Care ---
:1995 Author Organization [facility] Address [address] [place] [id number] Care Team Providers Name Role Phone FeliciaswathiKayli [facility] Primary Care Provider Reason for Visit Reason Comments CONTROL Encounter Details Date Type Department Care Team Description 05/27/2019 [facility], Encounter for other general counseling or advice on contraception (Primary Dx); [facility] Menorrhagia with irregular cycle; [address] Neutropenia, unspecified type [facility] [id number] [place], [place] [id number] Allergies No Known Allergiesdocumented as of this [...] Comments Blood Pressure 108/90 05/27/2019 3:41 PM CARD CLOTHIER Pulse 99 05/27/2019 3:41 PM CARD CLOTHIER Temperature 36.6 C (97.8 F) 05/27/2019 3:41 PM CARD CLOTHIER Respiratory Rate 16 05/27/2019 3:41 PM CARD CLOTHIER Oxygen Saturation - - Inhaled Oxygen Concentration - - Weight 54.9 kg (121 lb 1 oz) 05/27/2019 3:41 PM CARD CLOTHIER Height 162.6 cm (5' 4") 05/27/2019 3:41 PM CARD CLOTHIER Body Mass Index 20.78 05/27/2019 3:41 PM CARD CLOTHIER documented in this encounter Progress Notes Michelle Ponce, SALES REPRESENTATIVE PUBLIC UTILITIES - 05/27/2019 3:30 PM CST Chief complaint: [...] file Gets together: Not on file Attends sabianism service: Not on file Active member of [...] Date Type Specialty Care Team Description 06/23/2019 Burr Grinder Visit [facility], [facility] 08/26/2019 Office Visit [facility] Michelle Ponce FNP [address] [place] [address] [phone] Health Maintenance Due Date Last Done Comments [...] for other Results for this TEST PM CARD CLOTHIER general counseling or procedure are in advice on the results contraception section. documented in this encounter Results POCT TEST (05/27/2019 3:53 PM CARD CLOTHIER) POCT PREG Negative On board controls acceptable [...] Phone Address Type / Group Dates [facility] xxxxxxxxx 2018-Ebony [phone] Medicaid WOMEN nt [id number] [place] [address] documented as of this encounter Advance Directives Name Relationship Healthcare Agent Relationship Communication Ai Alejandrobrook Grandparent Primary healthcare agent
--- NOTE | 2019-07-27 18:50 | ER ---
Nurse's Notes [facility] Name: Gladis Meza Age: 23 yrs Sex: Female : 1995 Arrival Date: 07/27/2019 Time: 18:24 Bed 24 Private MD: Diagnosis: Bronchitis, not specified as acute or chronic Presentation: 07/26 18:29 Chief complaint: Patient states: Diagnosed with Flu B about 3 weeks ago. Still having ca1 cough and congestion. "my boss wants me to come. I can't get back to work without a doctor's note". Reports low grade fever yesterday. Coronavirus screen: The patient has NOT traveled to a country currently being monitored by the [facility] within the last 14 days. The patient has NOT had contact with any known and/or suspected case of coronavirus. Ebola Screen: Patient negative for fever greater than or equal to 101.5 degrees Fahrenheit, and additional compatible Ebola Virus Disease symptoms Patient denies exposure to infectious person. Patient denies travel to an Ebola-affected area in the 21 days before illness onset. No symptoms or risks identified at this time. Initial Sepsis Screen: Does the patient meet any 2 criteria? No. Patient's initial sepsis screen is negative. Does the patient have a suspected source of infection? No. Patient's initial sepsis screen is negative. Risk Assessment: Do you want to hurt yourself or someone else? Patient reports no desire to harm self or others. Onset of symptoms. 18:29 Method Of Arrival: Ambulatory ca1 18:29 Acuity: HOLLI 4 ca1 Triage Assessment: 18:40 General: Appears in no apparent distress. comfortable, Behavior is calm, cooperative, vc appropriate for age. Pain: Denies pain. HERB DIGGER: 18:33 LMP N/A - Irregular menses ca1 Historical: - Allergies: 18:33 NKDA; ca1 - Home Meds: 18:33 None [Active]; ca1 - PMHx: 18:33 None; ca1 - PSHx: 18:33 feet surg as a child; ca1 - Immunization history:: Adult Immunizations up to date, Flu vaccine is not up to date. - Social history:: Smoking status: Reported history of juuling and/or vaping. - Family history:: not pertinent. Screenin:39 Abuse screen: Denies threats or abuse. Nutritional screening: No deficits noted. vc Tuberculosis screening: No symptoms or risk factors identified. Fall Risk None identified. Assessment: 18:41 General: Appears in no apparent distress. comfortable, Behavior is calm, cooperative, vc appropriate for age. Pain: Denies pain. Neuro: Level of Consciousness is awake, alert, obeys commands, Oriented to person, place, time, situation, Appropriate for age. Cardiovascular: Capillary refill < 3 seconds Patient's skin is warm and dry. Respiratory: Reports shortness of breath on exertion Airway is patent Respiratory effort is even, unlabored, Respiratory pattern is regular, symmetrical. GI: No signs and/or symptoms were reported involving the gastrointestinal system. : No signs and/or symptoms were reported regarding the genitourinary system. EENT: No signs and/or symptoms were reported regarding the EENT system. Derm: Skin temperature is warm. Musculoskeletal: No signs and/or symptoms reported regarding the musculoskeletal system. Vital Signs: 18:29 BP 109 / 67; Pulse 93; Resp 19; Temp 97.6(TE); Pulse Ox 100% on R/A; Weight 54.43 kg ca1 (R); Height 5 ft. 3 in. (160.02 cm) (R); Pain 0/10; 18:29 Body Mass Index 21.26 (54.43 kg, 160.02 cm) ca1 ED Course: 18:24 Patient arrived in ED. rg4 18:27 Evin Smith MD is Attending Physician. steph 18:32 Triage completed. ca1 18:33 Arm band placed on right wrist. ca1 18:35 Philomena Mandujano RN is Primary Nurse. vc 18:41 Patient has correct armband on for positive identification. Placed in gown. vc 18:59 No provider procedures requiring assistance completed. Patient did not have IV access vc during this emergency room visit. Administered Medications: No medications were administered Outcome: 18:49 Discharge ordered by . steph 19:00 Discharged to home ambulatory, with friend. vc 19:00 Condition: good 19:00 Discharge instructions given to patient, Instructed on discharge instructions, follow up and referral plans. Demonstrated understanding of instructions, follow-up care. 19:00 Patient left the ED. vc Signatures: Evin Smith MD MD cha Garcia, Rubi rg4 Lillian Prajapati RN RN ca1 Calcote, Philomena, RN RN vc
--- NOTE | 2019-07-27 18:50 | EDPHYS ---
Physician Documentation [facility] Name: Gladis Meza Age: 23 yrs Sex: Female : 1995 Arrival Date: 07/27/2019 Time: 18:24 Bed 24 Private MD: EMANUEL Physician Evin Smith HPI: 07/26 18:41 This 23 yrs old Female presents to ER via Ambulatory with complaints of Flu steph Symptoms. 18:41 URI LAST WEEK. Onset: The symptoms/episode began/occurred 2 day(s) ago. Severity of steph symptoms: At their worst the symptoms were mild in the emergency department the symptoms are unchanged. The patient has not experienced similar symptoms in the past. 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 - Social history:: Smoking status: Reported history of juuling and/or vaping. - Family history:: not pertinent. ROS: 18:41 Constitutional: Negative for fever, chills, and weight loss, Eyes: Negative for injury, steph pain, redness, and discharge, ENT: Negative for injury, pain, and discharge, Neck: Negative for injury, pain, and swelling, Cardiovascular: Negative for chest pain, palpitations, and edema, Respiratory: Negative for shortness of breath, cough, wheezing, and pleuritic chest pain, Abdomen/GI: Negative for abdominal pain, nausea, vomiting, diarrhea, and constipation, Back: Negative for injury and pain, : Negative for injury, bleeding, discharge, and swelling, MS/Extremity: Negative for injury and deformity, Skin: Negative for injury, rash, and discoloration, Neuro: Negative for headache, weakness, numbness, tingling, and seizure, Psych: Negative for depression, anxiety, suicide ideation, homicidal ideation, and hallucinations, Allergy/Immunology: Negative for hives, rash, and allergies, Endocrine: Negative for neck swelling, polydipsia, polyuria, polyphagia, and marked weight changes, Hematologic/Lymphatic: Negative for swollen nodes, abnormal bleeding, and unusual bruising. Exam: 18:41 Constitutional: This is a well developed, well nourished patient who is awake, alert, steph and in no acute distress. Head/Face: Normocephalic, atraumatic. Eyes: Pupils equal round and reactive to light, extra-ocular motions intact. Lids and lashes normal. Conjunctiva and sclera are non-icteric and not injected. Cornea within normal limits. Periorbital areas with no swelling, redness, or edema. ENT: Nares patent. No nasal discharge, no septal abnormalities noted. Tympanic membranes are normal and external auditory canals are clear. Oropharynx with no redness, swelling, or masses, exudates, or evidence of obstruction, uvula midline. Mucous membranes moist. Neck: Trachea midline, no thyromegaly or masses palpated, and no cervical lymphadenopathy. Supple, full range of motion without nuchal rigidity, or vertebral point tenderness. No Meningismus. Chest/axilla: Normal chest wall appearance and motion. Nontender with no deformity. No lesions are appreciated. Cardiovascular: Regular rate and rhythm with a normal S1 and S2. No gallops, murmurs, or rubs. Normal PMI, no JVD. No pulse deficits. Respiratory: Lungs have equal breath sounds bilaterally, clear to auscultation and percussion. No rales, rhonchi or wheezes noted. No increased work of breathing, no retractions or nasal flaring. Abdomen/GI: Soft, non-tender, with normal bowel sounds. No distension or tympany. No guarding or rebound. No evidence of tenderness throughout. Back: No spinal tenderness. No costovertebral tenderness. Full range of motion. Skin: Warm, dry with normal turgor. Normal color with no rashes, no lesions, and no evidence of cellulitis. MS/ Extremity: Pulses equal, no cyanosis. Neurovascular intact. Full, normal range of motion. Neuro: Awake and alert, GCS 15, oriented to person, place, time, and situation. Cranial nerves II-XII grossly intact. Motor strength 5/5 in all extremities. Sensory grossly intact. Cerebellar exam normal. Normal gait. Psych: Awake, alert, with orientation to person, place and time. Behavior, mood, and affect are within normal limits. Vital Signs: 18:29 BP 109 / 67; Pulse 93; Resp 19; Temp 97.6(TE); Pulse Ox 100% on R/A; Weight 54.43 kg ca1 (R); Height 5 ft. 3 in. (160.02 cm) (R); Pain 0/10; 18:29 Body Mass Index 21.26 (54.43 kg, 160.02 cm) ca1 MDM: 18:34 Patient medically screened. [facility] Administered Medications: No medications were administered Disposition: 07/27/19 18:49 Discharged to Home. Impression: Bronchitis, not specified as acute or chronic. - Condition is Stable. - Discharge Instructions: Steps to Quit Smoking, Steps to Quit Smoking, [id number], Cough, Adult, Stzl-me-[id number], Cough, Adult. - Work release form, Medication Reconciliation Form, Thank You Letter, Antibiotic Education, Prescription Opioid Use form. - Follow up: Private Physician; When: 2 - 3 days; Reason: Recheck today's complaints, Continuance of care, Re-evaluation by your physician. - Problem is new. - Symptoms have improved. Signatures: Evin Smith MD MD [facility] Lillian Prajapati RN RN ca1 Philomena Mandujano RN RN vc Corrections: (The following items were deleted from the chart) 19:00 18:49 07/27/2019 18:49 Discharged to Home. Impression: Bronchitis, not specified as vc acute or chronic. Condition is Stable. Forms are Medication Reconciliation Form, Thank You Letter, Antibiotic Education, Prescription Opioid Use. Follow up: Private Physician; When: 2 - 3 days; Reason: Recheck today's complaints, Continuance of care, Re-evaluation by your physician. Problem is new. Symptoms have improved. steph
[2019-07-27 19:30] VITALS: BP 109/67; TEMP 97.6; O2SAT 100
== END 2019-07-27 19:00 | disposition home or self-care (01) ==
LOC: ER 18:21
DX: J40 Bronchitis, not specified as acute or chronic (principal)
CPT/HCPCS: 99281

== ENCOUNTER 2020-02-16 14:40 | Emergency (ER) | payer SELFPAY ==
[2020-02-16] MEDS ORDERED: MAGNE/ALUM HYDROXD 30 ML UCUP ONE (15:12)
[2020-02-16] MEDS ORDERED: LIDOCAINE VISCOUS 2% SOLN 15 ML UDC ONE (15:13)
--- NOTE | 2020-02-16 15:23 | RAD REPORT ---
EXAM DESCRIPTION: RAD - Chest Pa And Lat (2 Views) - 02/16/2020 3:18 pm CLINICAL HISTORY: CHEST PAIN Chest pain. COMPARISON: Chest Single View dated 03/30/2017 FINDINGS: The lungs are clear. The heart is normal in size. No displaced fractures. IMPRESSION: No acute or concerning finding suspected.
--- NOTE | 2020-02-16 15:55 | ER ---
Nurse's Notes [facility] Name: Gladis Meza Age: 24 yrs Sex: Female : 1995 Arrival Date: 02/16/2020 Time: 14:42 Bed 8 Private MD: Diagnosis: Aspiration;Chest pain, unspecified Presentation: 02/15 14:50 Chief complaint: Patient states: Choke on a Tamale 2 days ago. Since then have been ca1 having chest pain that has gotten worse. I feel like it's still stuck in there. Hurts to drink, swallow. Coronavirus screen: Client denies travel out of the [place] in the last 14 days. At this time, the client does not indicate any symptoms associated with coronavirus-19. Ebola Screen: Patient negative for fever greater than or equal to 101.5 degrees Fahrenheit, and additional compatible Ebola Virus Disease symptoms Patient denies exposure to infectious person. Patient denies travel to an Ebola-affected area in the 21 days before illness onset. No symptoms or risks identified at this time. Initial Sepsis Screen: Does the patient meet any 2 criteria? No. Patient's initial sepsis screen is negative. Does the patient have a suspected source of infection? No. Patient's initial sepsis screen is negative. Risk Assessment: Do you want to hurt yourself or someone else? Patient reports no desire to harm self or others. Onset of symptoms was February 16, 2020. 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 - Social history:: Smoking status: Reported history of juuling and/or vaping. - Family history:: not pertinent. - Hospitalizations: : No recent hospitalization is reported. Screenin:00 Abuse screen: Denies threats or abuse. Nutritional screening: No deficits noted. aa5 Tuberculosis screening: No symptoms or risk factors identified. Fall Risk None identified. Assessment: 14:53 General: Appears uncomfortable, Behavior is calm, cooperative. Pain: Complains of pain aa5 in chest Pain does not radiate. Pain currently is 7 out of 10 on a pain scale. Quality of pain is described as sharp, Pain began 2-3 days ago. Is continuous. Neuro: Level of Consciousness is awake, alert, obeys commands, Oriented to person, place, time, situation. Cardiovascular: Heart tones S1 S2 present Rhythm is regular. Respiratory: Airway is patent Respiratory effort is even, unlabored, Respiratory pattern is regular, symmetrical. GI: Abdomen is flat, non-distended, Bowel sounds present X 4 quads. Abd is soft and non tender X 4 quads. Reports tolerance of fluids, tolerance of food. : No signs and/or symptoms were reported regarding the genitourinary system. EENT: No signs and/or symptoms were reported regarding the EENT system. Derm: Skin is pink, warm \T\ dry. Musculoskeletal: Range of motion: intact in all extremities. 16:15 Reassessment: Patient is alert, oriented x 3, equal unlabored respirations, skin aa5 warm/dry/pink. Vital Signs: 14:50 BP 116 / 76; Pulse 107; Resp 17 S; Temp 99.1(TE); Pulse Ox 97% on R/A; Weight 52.62 kg ca1 (R); Height 5 ft. 3 in. (160.02 cm) (R); Pain 7/10; 14:50 Body Mass Index 20.55 (52.62 kg, 160.02 cm) ca1 ED Course: 14:42 Patient arrived in ED. as 14:43 Leo Bob MD is Attending Physician. rn 14:47 Ira August, VIKKI is Primary Nurse. aa5 14:52 Triage completed. ca1 14:53 Arm band placed on right wrist. ca1 14:53 Patient has correct armband on for positive identification. Placed in gown. Bed in low aa5 position. Call light in reach. Side rails up X2. 14:53 Pulse ox on. NIBP on. aa5 15:00 No provider procedures requiring assistance completed. Patient maintains SpO2 aa5 saturation greater than 95% on room air. 15:16 XRAY Chest Pa And Lat (2 Views) In Process Unspecified. EDMS 16:15 Patient did not have IV access during this emergency room visit. aa5 Administered Medications: 15:00 Drug: GI Cocktail without - (Maalox Suspension 30 ml, Lidocaine Liquid 2 % 15 aa5 ml) Route: PO; 16:15 Follow up: Response: No adverse reaction aa5 Outcome: 15:54 Discharge ordered by . rn 16:15 Patient left the ED. aa5 16:15 Discharged to home ambulatory, with family. aa5 16:15 Condition: stable 16:15 Discharge instructions given to patient, Instructed on discharge instructions, follow up and referral plans. medication usage, Demonstrated understanding of instructions, follow-up care, medications, Prescriptions given X 1. Signatures: Dispatcher [employer] Sarah Luna Roman, MD MD rn Calderon, Audri, RN RN aa5 Lillian Prajapati RN RN ca1 Corrections: (The following items were deleted from the chart) 16:21 16:21 Patient left the ED. aa5 aa5
--- NOTE | 2020-02-16 15:56 | EDPHYS ---
Physician Documentation [facility] Name: Gladis Meza Age: 24 yrs Sex: Female : 1995 Arrival Date: 02/16/2020 Time: 14:42 Bed 8 Private MD: ED Physician Leo Bob HPI: 02/15 14:57 This 24 yrs old Female presents to ER via Ambulatory with complaints of Chest rn Pain. 14:57 The patient or guardian reports chest pain that is located primarily in the substernal rn area. The pain does not radiate. Associated signs and symptoms: Pertinent negatives: abdominal pain, headache, palpitations, shortness of breath, syncope, vomiting. The chest pain is described as burning. Duration: The patient or guardian reports multiple episodes, that are intermittent. Modifying factors: The symptoms are alleviated by nothing. the symptoms are aggravated by nothing. Severity of pain: At its worst the pain was mild in the emergency department the pain is unchanged. The patient has not experienced similar symptoms in the past. Reports choked on tamale 2 nights ago, able to cough it up, did not come out, since then has been feeling upper chest pain, burning sensation, and pain with swallowing. Able to swallow both liquids and solids. . 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 - Social history:: Smoking status: Reported history of juuling and/or vaping. - Family history:: not pertinent. - Hospitalizations: : No recent hospitalization is reported. ROS: 14:57 Constitutional: Negative for fever, chills, and weight loss, Neck: Negative for injury, rn pain, and swelling, Cardiovascular: Negative for chest pain, palpitations, and edema, Respiratory: Negative for wheezing Abdomen/GI: Negative for abdominal pain, nausea, vomiting, diarrhea, and constipation, MS/Extremity: Negative for injury and deformity, Skin: Negative for injury, rash, and discoloration, Neuro: Negative for headache, weakness, numbness, tingling, and seizure. Exam: 14:57 Constitutional: This is a well developed, well nourished patient who is awake, alert, rn and in no acute distress. Head/Face: Normocephalic, atraumatic. Neck: No crepitus or swelling Cardiovascular: Tachycardic, regular Respiratory: No increased work of breathing, no retractions or nasal flaring. Abdomen/GI: soft, non-tender Skin: Warm, dry MS/ Extremity: Pulses equal, no cyanosis. Neurovascular intact. Full, normal range of motion. Equal circumference. Neuro: Awake and alert, GCS 15 15:03 ECG was reviewed by the Attending Physician. rn Vital Signs: 14:50 BP 116 / 76; Pulse 107; Resp 17 S; Temp 99.1(TE); Pulse Ox 97% on R/A; Weight 52.62 kg ca1 (R); Height 5 ft. 3 in. (160.02 cm) (R); Pain 7/10; 14:50 Body Mass Index 20.55 (52.62 kg, 160.02 cm) ca1 MDM: 14:43 Patient medically screened. rn 15:53 Differential diagnosis: chest wall pain, costochondritis, esophagitis, gastritis, rn pleurisy, pneumonia, pneumothorax, pneumonitis, aspiration. Data reviewed: vital signs, nurses notes, EKG, radiologic studies, plain films, and as a result, I will discharge patient. Counseling: I had a detailed discussion with the patient and/or guardian regarding: the historical points, exam findings, and any diagnostic results supporting the discharge/admit diagnosis, radiology results, the need for outpatient follow up, to return to the emergency department if symptoms worsen or persist or if there are any questions or concerns that arise at home. Response to treatment: the patient's symptoms have mildly improved after treatment, and as a result, I will discharge patient. Special discussion: I discussed with the patient/guardian in detail that at this point there is no indication for admission to the hospital. It is understood, however, that if the symptoms persist or worsen the patient needs to return immediately for re-evaluation. 02/15 14:55 Order name: XRAY Chest Pa And Lat (2 Views); Complete Time: 15:25 rn 02/15 14:55 Order name: EKG; Complete Time: 14:55 rn 02/15 14:55 Order name: EKG - Nurse/Tech; Complete Time: 14:57 rn EC:03 Rate is 90 beats/min. Rhythm is regular. QRS [place] is Normal. GA interval is normal. QRS rn interval is normal. QT interval is normal. No Q waves. No ST changes noted. Clinical impression: Normal ECG. Interpreted by me. Reviewed by me. Administered Medications: 15:00 Drug: GI Cocktail without - (Maalox Suspension 30 ml, Lidocaine Liquid 2 % 15 aa5 ml) Route: PO; 16:15 Follow up: Response: No adverse reaction aa5 Disposition: 02/16/20 15:54 Discharged to Home. Impression: Aspiration, Chest pain, unspecified. - Condition is Stable. - Discharge Instructions: Nonspecific Chest Pain, Aspiration Precautions, Adult, Aspiration Pneumonia. - Prescriptions for Zithromax Z- Neymar 250 mg Oral Tablet - take 1 tablet by ORAL route as directed for 5 days Day 1 - take two (2) tablets one time. Day 2, 3, 4 , 5 take one (1) tablet once daily.; 6 tablet. - Medication Reconciliation Form, Thank You Letter, Antibiotic Education, Prescription Opioid Use form. - Follow up: Private Physician; When: As needed; Reason: Recheck today's complaints, Re-evaluation by your physician. - Problem is new. - Symptoms have improved. Signatures: Dispatcher [employer] EDMS Leo Bob MD MD rn Calderon, Audri, RN RN aa5 Lillian Prajapati RN RN ca1 Corrections: (The following items were deleted from the chart) 16:21 15:54 02/16/2020 15:54 Discharged to Home. Impression: Aspiration; Chest pain, aa5 unspecified. Condition is Stable. Forms are Medication Reconciliation Form, Thank You Letter, Antibiotic Education, Prescription Opioid Use. Follow up: Private Physician; When: As needed; Reason: Recheck today's complaints, Re-evaluation by your physician. Problem is new. Symptoms have improved. rn
[2020-02-16 17:18] VITALS: BP 116/76; TEMP 99.1; O2SAT 97
--- OUTSIDE RECORDS SUMMARY | 2020-02-17 21:27 | XMS REPORT | Summary of Care ---
:1995 Author Organization [facility] Address [address] [place], [place] [id number] Care Team Providers Name Role Phone Kodyrosemarie Teresaemerita [employer] DEVELOPER Primary Care Provider Encounter Details Date Type Department Care Team Description 10/18/2019 Patient Secure [facility] RMP- Doctor Alonso De La Garza [place] [address] [address] [place] [phone] Allergies No Known Allergiesdocumented as of this encounter (statuses as of 11/20/2019) Medications No known medicationsdocumented as of this encounter (statuses as of 11/20/2019) Active Problems Problem Noted Date Influenza B 07/06/2019 Acute cystitis with hematuria 07/06/2019 Encounter for other general counseling or advice on co ntraception 05/27/2019 Menorrhagia with irregular cycle 05/27/2019 Pap smear abnormality of cervix/human papillomavirus ( HPV) positive 11/09/2018 LGSIL on Pap smear of cervix 11/09/2018 documented as of this encounter (statuses as of 11/20/2019) Resolved Problems Problem Noted Date Resolved Date Venereal disease contact 09/29/2018 05/27/2019 Echogenic focus of heart, , affecting care of mother, 0 06/25/2017 05/27/2019 antepartum Overview: Needs repeat usg around 08/10/17-order at next visit on 07/10/17. Follow up completed 08/06/17-no abnormal findings UTI in 06/13/2017 05/27/2019 Overview: ERASMO neg Susceptible to varicella (non-immune), currently 05/27/2019 High risk , antepartum 06/10/2017 05/27/19 20 Uterine size-date discrepancy, antepartum 06/10/2017 08/21/2017 Insufficient antepartum care 06/10/2017 05/27/2019 History of depression, currently 018 05/27/2019 Tylenol ingestion 01/02/2013 06/10/2017 documented as of this encounter (statuses as of 11/20/2019) Immunizations Name Administration Dates Next Due HPV9 11/09/2018 TDAP 08/21/2017 documented as of this encounter Social History Tobacco Use Types Packs/Day Years Used Date Former Smoker Cigarettes 0.5 3 06/10/2014 - 1 06/26/2016 Smokeless Tobacco: Never Used Alcohol Use Drinks/Week oz/Week Comments No Sex Assigned at Date Recorded Not on file Job Start Date Occupation Industry Not on file Not on file Not on file Travel History Travel Start Travel End No recent travel history available. COVID-19 Exposure Response Date Recorded In the last month, have you been in contact with No / Unsure 10/21/2019 1:35 PM CDT someone who was confirmed or suspected to have Coronavirus / COVID-19? documented as of this encounter Last Filed Vital Signs Not on filedocumented in this encounter Plan of Treatment Date Type Specialty Care Team Description 01/24/2020 Office Visit OB Satellites Debbie Caballero, [facility] [address] [place] [address] [phone] Health Maintenance Due Date Last Done Comments VARICELLA VACCINES (1 of 2 1997 - 2-dose childhood series) MENINGOCOCCAL B VACCINES (1 2006 of 2 - Risk Bexsero 2-dose series) HPV VACCINES (2 - Female 12/07/2018 11/09/2018 3-dose series) INFLUENZA VACCINE (#1) 2020 Postponed from 01/11/2020 (Refu sed) Depression Screening 07/06/2020 07/06/2019 CHLAMYDIA SCREENING 10/20/2020 10/21/2019, 08/20/2019, 07/06/2019, Additional history exists PAP SMEAR 02/11/2022 02/11/2019 DTaP,Tdap,and Td Vaccines 08/22/2027 08/21/2017 (2 - Td) PNEUMOCOCCAL 0-64 YEARS Aged Out No longe r eligible COMBINED SERIES based on patient 's age to complete this topic documented as of this encounter Results Not on filedocumented in this encounter Insurance Payer Benefit Plan Subscriber ID Effective Phone Address Typ e / Group Dates [facility] xxxxxxxxx 2018-Prese [phone] Medicaid WOMEN nt [address] [place] [address] documented as of this encounter Advance Directives Name Relationship Healthcare Agent Relationship Co mmunication Ai Santana Grandparent Primary healthcare agent
--- OUTSIDE RECORDS SUMMARY | 2020-02-17 21:27 | XMS REPORT | Summary of Care ---
:1995 Author Organization [facility] - Health Address [address] [place] [address] Care Team Providers Name Role Phone Kodyrosemarie Teresaemerita [facility] Primary Care Provider Encounter Details Date Type Department Care Team Description 12/28/2019 Orders Only [facility] Doctor Unassigned, No [address] [facility] vard Name [place] [phone] [place] [phone] Allergies No Known Allergiesdocumented as of this encounter (statuses as of 12/28/2019) Medications No known medicationsdocumented as of this encounter (statuses as of 12/28/2019) Active Problems Problem Noted Date Influenza B 07/06/2019 Acute cystitis with hematuria 07/06/2019 Encounter for other general counseling or advice on co ntraception 05/27/2019 Menorrhagia with irregular cycle 05/27/2019 Pap smear abnormality of cervix/human papillomavirus ( HPV) positive 11/09/2018 LGSIL on Pap smear of cervix 11/09/2018 documented as of this encounter (statuses as of 12/28/2019) Resolved Problems Problem Noted Date Resolved Date [...] as of this encounter (statuses as of 12/28/2019) Immunizations Name Administration Dates Next Due HPV9 11/09/2018 TDAP 08/21/2017 documented as of this encounter Social History Tobacco Use Types Packs/Day Years Used Date Former Smoker Cigarettes 0.5 3 06/10/2014 - 1 06/26/2016 Smokeless Tobacco: Never Used Alcohol Use Drinks/Week oz/Week Comments No Sex Assigned at Date Recorded Not on file documented as of this encounter Last Filed Vital Signs Not on filedocumented in this encounter Plan of Treatment Date Type Specialty Care Team Description 12/28/2019 Office Visit OB Satellites Emil Soto, [employer] [address] [place], [place] [address] [phone] 01/24/2020 Office Visit OB Satellites Debbie Caballero, CNP [address] [place], [place] [address] [phone] Health Maintenance Due Date Last Done Comments VARICELLA VACCINES (1 of 2 - 1997 2-dose childhood series) PNEUMOCOCCAL 0-64 YEARS COMBINED 2002 SERIES (1 of 3 - PCV13) MENINGOCOCCAL B VACCINES (1 of 2 - 2006 Risk Bexsero 2-dose series) HPV VACCINES (2 - 3-dose series) 12/07/2018 11/09/2018 INFLUENZA VACCINE (#1) 2020 Depression Screening 07/06/2020 07/06/2019 CHLAMYDIA SCREENING 10/20/2020 10/21/2019, 08/20/2019, 07/06/2019, Additional history exists PAP SMEAR 02/11/2022 02/11/2019 DTaP,Tdap,and Td Vaccines (2 - Td) 08/22/2027 08/21/2017 documented as of this encounter Procedures Procedure Name Priority Date/Time Associated Diagnosis Comme nts CONSENT/REFUSAL FOR Routine 12/28/2019 10:54 AM DIAGNOSIS AND TREATMENT CDT ASSIGNMENT OF BENEFITS Routine 12/28/2019 10:54 AM CDT documented in this encounter Results Not on filedocumented in this encounter Insurance Payer Benefit Plan Subscriber ID Effective Phone Address Typ e / Group Dates [facility] [id number] 2018-Prese [phone] Medicaid [place]OM[place] nt 00 [id number] [place] [address] documented as of this encounter Advance Directives Name Relationship Healthcare Agent Relationship Co mmunication [facility] Care Agent [phone] ( Mobile)
--- OUTSIDE RECORDS SUMMARY | 2020-02-17 21:27 | XMS REPORT | Summary of Care ---
:1995 Author Organization [facility] Address [address] [place] [address] Care Team Providers Name Role Phone KodyrosemarieCarmita MAINTENANCE DIRECTOR Primary Care Provider Reason for Visit Reason Comments STD Testing Encounter Details Date Type Department Care Team Description [facility] re[facility] for venereal disease [address] [facility] [address] [facility] (Primary Dx) [place], [place] [phone] Allergies No Known Allergiesdocumented as of [...] Assigned at Date Recorded Not on file COVID-19 Exposure Response Date Recorded In the last month, have you been in contact with No / Unsure 12/28/2019 10:59 AM CDT someone who was confirmed or suspected to have Coronavirus / COVID-19? documented as of this encounter Last Filed Vital Signs Vital Sign Reading Time Taken Comments Blood Pressure 116/70 12/28/2019 10:59 AM CDT Pulse 100 12/28/2019 10:59 AM CDT Temperature 36.7 C (98 F) 12/28/2019 10:59 AM CDT Respiratory Rate 16 12/28/2019 10:59 AM CDT Oxygen Saturation - - Inhaled Oxygen Concentration - - Weight 56.5 kg (124 lb 9 oz) 12/28/2019 10:59 AM CDT Height 160 cm (5' 3") 12/28/2019 10:59 AM CDT Body Mass Index 22.07 12/28/2019 10:59 AM CDT documented in this encounter Progress Notes Emil Soto FNP - 12/28/2019 11:00 AM CDT Chief complaint: Chief Complaint Patient presents with STD Testing HPI Patient here for STD testing only. Patient denies any symptoms and just desires testing. Histories OB History Para Term AB Living [...] Financial resource strain: Not on file Food insecurity Worry: Not on file Inability: Not on file Transportation needs Medical: Not on file Non-medical: Not on file Tobacco Use Smoking status: Former Smoker Packs/day: 0.50 Years: 3.00 Pack years: 1.50 Types: Cigarettes Start date: 06/10/2014 Quit date: 04/25/2017 Years since quittin.6 Smokeless tobacco: Never Used Substance and Sexual Activity Alcohol use: No Drug use: No Sexual activity: Yes Partners: Male control/protection: Pill Lifestyle Physical activity Days per week: Not on file Minutes per session: Not on file Stress: Not on file Relationships Social connections Talks on phone: Not on file Gets together: Not on file Attends latter day service: Not on file Active member of club or organization: Not on file Attends meetings of clubs or organizations: Not on file Relationship status: Not on file Intimate partner violence Fear of current or ex partner: Not [...] Gladis has No Known Allergies. Medications Gladis currently has no medications in their medication list. Review of Systems Constitutional: Negative for activity change, appetite change, fatigue, unexpected weight change, weight gain and weight loss. HENT: Negative for sore throat. Eyes: Negative for visual disturbance. Respiratory: Negative for cough and shortness of breath. Breasts: Negative for discharge, mass, pain and unequal size. Cardiovascular: Negative for chest pain, palpitations and leg swelling. Gastrointestinal: Negative. Negative for abdominal pain, anal bleeding, blood in stool, constipation, diarrhea, nausea, rectal pain and vomiting. Genitourinary: Negative for bladder incontinence, dysuria, urgency, flank pain, vaginal bleeding, vaginal discharge, genital sores, vaginal pain and pelvic pain. Skin: Negative for color change and rash. Neurological: Negative. Negative for dizziness, syncope and headaches. Psychiatric/Behavioral: Negative for confusion, self-injury and sleep disturbance. The patient is not nervous/anxious. Hematological: Negative for cold intolerance and heat intolerance. Endocrine: Negative for hair loss, cold intolerance, heat intolerance, weight gain and weight loss. BP 116/70 (BP Location: Right arm, Patient Position: Sitting, BP CUFF SIZE: Adult Medium) | Pulse 100 | Temp 36.7 C (98 F) (Oral) | Resp 16 | Ht 5' 3" (1.6 m) | Wt 124 lb 9 oz (56.5 kg) | BMI22.07 kg/m Pregravid BMI: Could not be calculated Physical Exam Vitals reviewed. Constitutional: She is oriented to person, place, and time. She appears well- developed and well-nourished. Her body habitus is normal. Cardiovascular: Regular rate and rhythm. No peripheral edema present. Pulmonary/Chest: Normal inspiratory effort. Neuro/Psychiatric: Inappropriate mood and affect. She is oriented to person, place, and time. Skin: Skin normal. No lesion, no rash and no ulceration present. Assessment/Plan Screening examination for venereal disease (primary encounter diagnosis) Comment: patient desires STD Plan: GC & CHLAMYDIA AMPLIFIED ASSAY, [facility] ONLY - SYPHILIS IGG/IGM, HIV 1/2 AG-AB WITH REFLEX Denies zika virus risk, signs and symptoms such as fever,rash,joint pain, conjunctivitis (red eyes), muscle pain, headaches; outside [place] travel to areas affected by zika, and FOB exposure to zika.Educated on use of mosquito repellent. Covid x12 screening done, screening results are negative. Return to clinic in 2 weeks. Discussed treatment options. Medications as ordered. Reviewed patient instructions and provided printed copy. This visit did not involve counseling and coordination that comprised more than 50% of the visit time. TORI Ortega 12/28/2019 12:42 PM documented in this encounter Plan of Treatment Date Type Specialty Care Team Description 01/24/2020 [facility] [address] [address] [phone] Name Type Priority Associated Diagnoses Date/Ti me GC & CHLAMYDIA LAB Routine Screening examination for 12/28/2019 11:10 AM CDT AMPLIFIED ASSAY venereal disease G[facility] ONLY - SYPHILIS LAB Routine Screening examinatio n for 12/28/2019 11:10 AM CDT IGG/IGM venereal disease HIV 1/2 AG-AB WITH LAB Routine Screening examination for 12/28/2019 11:10 AM CDT REFLEX venereal disease Health Maintenance Due Date Last Done Comments [...] 08/22/2027 08/21/2017 documented as of this encounter Results Not on filedocumented in this encounter Visit Diagnoses Diagnosis Screening examination for venereal disea se - Primary documented in this encounter Insurance Payer Benefit Plan Subscriber ID Effective Phone Address Typ e / Group Dates [facility] [id number] 2018-Ebony [phone] Medicaid [place]OM[place] nt 00 [id number] [place] [address] documented as of this encounter Advance Directives Name Relationship Healthcare Agent Relationship Co mmunication [facility] [phone] ( Mobile)
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
--- OUTSIDE RECORDS SUMMARY | 2020-02-17 21:27 | XMS REPORT | Summary of Care ---
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 Primary Care Provider Reason for Visit Reason Comments STD Testing Encounter Details Date Type Department Care Team Description [facility] [place] [facility] for venereal disease [address] [facility] [facility] [address] [facility] (Primary Dx) [place], [place] [id number] Allergies No Known [...] file Gets together: Not on file Attends [employer] service: Not on file Active member of [...] 01/24/2020 Office Visit [facility] Caballero, [facility] [address] [address] [phone] Name Type Priority Associated Diagnoses Date/Ti me [...] Address Typ e / Group Dates [facility] [id number] 2018-Ebony [phone] [place] [id number] [place] [address] documented as of this encounter Advance Directives Name Relationship Healthcare Agent Relationship Co mmunication [facility] [phone] ( Mobile)
== END 2020-02-16 16:21 | disposition home or self-care (01) ==
LOC: ER 14:40
DX: R07.9 Chest pain, unspecified (principal); R09.89 Other specified symptoms and signs involving the circulatory and respiratory systems; Z87.891 Personal history of nicotine dependence
CPT/HCPCS: 71046; 93005; 99284

== ENCOUNTER 2020-12-13 11:31 | Emergency (ER) | payer OTHER, SELFPAY | END 2020-12-13 12:46 | disposition left against medical advice (07) | LOC: ER 11:31 | DX: Z02.9 Encounter for administrative examinations, unspecified (principal) ==

== ENCOUNTER 2021-04-25 08:55 | Emergency (ER) | payer OTHER ==
[2021-04-25 09:11] LABS: Urine Blood Negative (Negative); Urine Glucose Negative (Negative); Urine Protein Negative (Negative); Urine Specific Gravity 1.025 (1.005-1.030)
[2021-04-25 09:43] LABS: Absolute Lymphocytes (CBC) 0.4 K/uL (0.7-4.9); Basophils % 0.4 % (0-1.3); Hematocrit 37.1 % (36.0-45.0); Lymphocytes % 10.2 % (15.3-44.8); RBC Red Blood Cell Count 3.98 M/uL (3.86-4.86)
[2021-04-25 09:45] LABS: Urine Specific Gravity/Preg 1.025 (1.005-1.030)
--- NOTE | 2021-04-25 10:11 | RAD REPORT ---
EXAM DESCRIPTION: US - Transvaginal OB - 04/25/2021 10:00 am CLINICAL HISTORY: ABD CRAMPING, COMPARISON: Transvaginal OB dated 03/30/2017 FINDINGS: Gestational sac identified measuring 5 millimeters which is consistent with 5 weeks 2 days . No pole identified. No heart tones. The right ovary measures 4.5 mL in volume. The left ovary measures 17.1 mL in volume. There is a corpus luteum in the left ovary. IMPRESSION: Gestational sac identified measuring 5 weeks 2 days with estimated date of delivery of 0 12/24/2021. No pole or heart tones identified likely due to early dates. Short-term follow -up ultrasound is suggested.
[2021-04-25] MEDS ORDERED: CEFTRIAXONE 1000 MG/VIAL ONE (11:20)
[2021-04-25] MEDS ORDERED: AZITHROMYCIN 250 MG TAB ONE (11:20)
[2021-04-25] MEDS ORDERED: NA CHLORIDE 0.9% 100 ML ONE (11:21)
--- NOTE | 2021-04-25 11:25 | ER ---
Nurse's Notes [facility] Name: Gladis Meza Age: 25 yrs Sex: Female : 1995 Arrival Date: 04/25/2021 Time: 08:56 Bed 20 Private MD: Diagnosis: Pelvic Pain Presentation: 04/25 09:00 Chief complaint: Patient states: + test at home, LMP 03/19/21. Started having ll1 "orange" vaginal discharge and cramping last night. No fever. Coronavirus screen: Vaccine status: Patient reports receiving the 1st dose of the Covid vaccine. Client denies travel out of the [place] in the last 14 days. At this time, the client does not indicate any symptoms associated with coronavirus-19. Ebola Screen: Patient denies travel to an Ebola-affected area in the 21 days before illness onset. Initial Sepsis Screen: Does the patient meet any 2 criteria? No. Patient's initial sepsis screen is negative. Does the patient have a suspected source of infection? No. Patient's initial sepsis screen is negative. Risk Assessment: Do you want to hurt yourself or someone else? Patient reports no desire to harm self or others. Onset of symptoms was April 24, 2021. 09:00 Method Of Arrival: Ambulatory ll1 09:00 Acuity: HOLLI 3 ll1 Triage Assessment: 09:00 General: Appears in no apparent distress. uncomfortable, Behavior is calm, cooperative, bp appropriate for age. Pain: Denies pain. EENT: No deficits noted. Neuro: No deficits noted. Cardiovascular: No deficits noted. Respiratory: No deficits noted. GI: No signs and/or symptoms were reported involving the gastrointestinal system. : Reports discharge, from vagina that is. Derm: No deficits noted. Musculoskeletal: No deficits noted. Historical: - Allergies: 08:59 NKDA; ll1 - PMHx: 08:59 None; ll1 - PSHx: 08:59 cyst removed from feet; ll1 - Immunization history:: Client reports receiving the Manav \\T\\ Manav single-dose vaccine. - Social history:: Smoking status: Reported history of juuling and/or vaping. Screenin:00 Abuse screen: Denies threats or abuse. Denies injuries from another. Nutritional bp screening: No deficits noted. Tuberculosis screening: No symptoms or risk factors identified. Fall Risk None identified. Assessment: 09:00 General: SEE TRIAGE NOTE. bp 10:32 Reassessment: No changes from previously documented assessment. Patient and/or family bp updated on plan of care and expected duration. Pain level reassessed. PT RETURNED FROM [place]/S. 11:48 Reassessment: PT D/C HOME AMBULATORY, DX WITH PELVIC PAIN. bp Vital Signs: 09:00 BP 123 / 73; Pulse 85; Resp 16; Temp 98.3; Pulse Ox 100% ; Weight 57.15 kg; Height 5 ll1 ft. 4 in. (162.56 cm); Pain 3/10; 11:50 BP 119 / 71; Pulse 75; Resp 17; Pulse Ox 100% ; bp 09:00 Body Mass Index 21.63 (57.15 kg, 162.56 cm) ll1 ED Course: 08:56 Patient arrived in ED. am2 08:57 Hank Ramos PA is PHCP. [facility] 08:57 Leo Bob MD is Attending Physician. [facility] 09:00 Arm band placed on Patient placed in an exam room, on a stretcher. [facility] 09:00 Patient has correct armband on for positive identification. Bed in low position. Call bp light in reach. Side rails up X2. 09:01 Triage completed. 1 09:04 Rao Buenrostro, RN is Primary Nurse. bp 09:37 Inserted saline lock: 20 gauge in right forearm, using aseptic technique. Blood bp collected. 10:00 Transvaginal OB In Process Unspecified. EDMS 11:49 No provider procedures requiring assistance completed. IV discontinued, intact, bp bleeding controlled, No redness/swelling at site. Pressure dressing applied. Administered Medications: 11:15 Drug: Rocephin (cefTRIAXone) 1 grams Route: IM; Site: affected area; bp 11:48 Follow up: Response: No adverse reaction bp 11:15 Drug: AZITHromycin 1 grams Route: PO; bp 11:48 Follow up: Response: No adverse reaction bp Outcome: 11:24 Discharge ordered by . jmm 11:49 Discharged to home ambulatory. bp 11:49 Condition: stable 11:49 Discharge instructions given to patient, Instructed on discharge instructions, follow up and referral plans. safe sex practices, Demonstrated understanding of instructions, follow-up care. 11:52 Patient left the ED. bp Signatures: Dispatcher [employer] EDMS Hank Ramos PA PA jmm Moreno, Amanda am2 Rao Buenrostro RN RN bp Grzegorz Tapia RN RN ll1 Corrections: (The following items were deleted from the chart) 09:06 09:00 Chief complaint: Patient states: + test at home, LMP 03/19/21. Started ll1 having orange vaginal discharge and cramping last night. No fever. ll1
--- NOTE | 2021-04-25 11:25 | EDPHYS ---
Physician Documentation [facility] Name: Gladis Meza Age: 25 yrs Sex: Female : 1995 Arrival Date: 04/25/2021 Time: 08:56 Bed 20 Private MD: ED Physician Leo Bob HPI: 04/25 09:15 This 25 yrs old Female presents to ER via Ambulatory with complaints of Vaginal jmm Discharge, Pelvic Pain. 09:15 The patient presents with a possible exposure to a sexually transmitted disease, jmm vaginal discharge, that is yellow discharge. Onset: The symptoms/episode began/occurred 1 day(s) ago. Modifying factors: The symptoms are alleviated by nothing, the symptoms are aggravated by nothing. Associated signs and symptoms: Pertinent negatives:. This is a 25-year-old female that presents emerged department with complaints of pelvic pain and abnormal discharge which she describes as yellow orangeish color. Patient's LMP was 03/19/2021. Denies vomiting, denies vaginal bleeding.. Historical: - Allergies: 08:59 NKDA; ll1 - PMHx: 08:59 None; ll1 - PSHx: 08:59 cyst removed from feet; ll1 - Immunization history:: Client reports receiving the Manav \T\ Manav single-dose vaccine. - Social history:: Smoking status: Reported history of juuling and/or vaping. ROS: 09:15 Constitutional: Negative for fever, chills, and weight loss, Cardiovascular: Negative jmm for chest pain, palpitations, and edema, Respiratory: Negative for shortness of breath, cough, wheezing, and pleuritic chest pain. 09:15 : Positive for pelvic pain. 09:15 All other systems are negative. Exam: 09:15 Constitutional: This is a well developed, well nourished patient who is awake, alert, jmm and in no acute distress. Head/Face: atraumatic. Eyes: EOMI, no conjunctival erythema appreciated ENT: Moist Mucus Membranes Neck: Trachea midline, Supple Chest/axilla: Normal chest wall appearance and motion. Cardiovascular: Regular rate and rhythm. No edema appreciated Respiratory: Normal respirations, no respiratory distress appreciated Abdomen/GI: Non distended, soft Back: Normal ROM Skin: General appearance color normal MS/ Extremity: Moves all extremities, no obvious deformities appreciated, no edema noted to the lower extremities Neuro: Awake and alert, normal gait Psych: Behavior is normal, Mood is normal, Patient is cooperative and pleasant Vital Signs: 09:00 BP 123 / 73; Pulse 85; Resp 16; Temp 98.3; Pulse Ox 100% ; Weight 57.15 kg; Height 5 ll1 ft. 4 in. (162.56 cm); Pain 3/10; 11:50 BP 119 / 71; Pulse 75; Resp 17; Pulse Ox 100% ; bp 09:00 Body Mass Index 21.63 (57.15 kg, 162.56 cm) ll1 MDM: 09:11 Patient medically screened. [facility] 11:23 Data reviewed: vital signs, nurses notes. Counseling: I had a detailed discussion with [facility] the patient and/or guardian regarding: the historical points, exam findings, and any diagnostic results supporting the discharge/admit diagnosis, lab results, radiology results, the need for outpatient follow up, to return to the emergency department if symptoms worsen or persist or if there are any questions or concerns that arise at home. ED course: Her nontoxic appearance in the ED. Advised follow with LINE WORKER for further evaluation otherwise given strict return precautions. Patient understood agrees plan of care.. 04/25 09:11 Order name: Urine Dipstick-Ancillary; Complete Time: 09:15 [facility] 04/25 09:11 Order name: Abo/rh Typing; Complete Time: 10:39 [facility] 04/25 09:11 Order name: Basic Metabolic Panel [facility] 04/25 09:11 Order name: CBC with Diff; Complete Time: 09:47 [facility] 04/25 09:11 Order name: Quantitative Hcg [facility] 04/25 09:12 Order name: GC (GONORR/CHLAMYDIA) Probe [facility] 04/25 09:11 Order name: IV Saline Lock; Complete Time: 09:37 [facility] 04/25 09:11 Order name: Labs collected and sent; Complete Time: 09:37 [facility] 04/25 09:12 Order name: Wet Prep; Complete Time: 11:11 [facility] 04/25 09:16 Order name: Transvaginal OB; Complete Time: 10:16 [facility] 04/25 09:24 Order name: Urine --Ancillary (enter results); Complete Time: 09:47 em1 04/25 09:11 Order name: NPO; Complete Time: 09:16 [facility] 04/25 09:11 Order name: Urine Dipstick-Ancillary (obtain specimen); Complete Time: :16 [facility] 04/25 09:22 Order name: Pelvic Exam Setup; Complete Time: 09:37 [facility] Administered Medications: 11:15 Drug: Rocephin (cefTRIAXone) 1 grams Route: IM; Site: affected area; bp 11:48 Follow up: Response: No adverse reaction bp 11:15 Drug: AZITHromycin 1 grams Route: PO; bp 11:48 Follow up: Response: No adverse reaction bp Disposition: 14:51 Co-signature as Attending Physician, Leo Bob MD. rn Disposition Summary: 04/25/21 11:24 Discharge Ordered Location: Home [facility] Condition: Stable [facility] Diagnosis - Pelvic Pain [facility] Followup: [facility] - With: Private Physician - When: 2 - 3 days - Reason: Recheck today's complaints, Continuance of care, Re-evaluation by your physician Discharge Instructions: - Discharge Summary Sheet [facility] - Abdominal Pain During [facility] Forms: - Medication Reconciliation Form [facility] - Thank You Letter [facility] - Antibiotic Education [facility] - Prescription Opioid Use [facility] Signatures: Dispatcher [employer] EDMS Hank Ramos PA PA [facility] Leo Bob MD MD rn Rao Buenrostro, RN RN Grzegorz Mckeon RN RN ll1 Corrections: (The following items were deleted from the chart) 09:16 09:13 1st Trimest Single 1st Fetus+US.RAD.BRZ ordered. EDMS EDMS
[2021-04-25 12:00] VITALS: TEMP 98.3; O2SAT 100
[2021-04-25 12:02] VITALS: BP 119/71
[2021-04-25 12:30] LABS: BUN Blood Urea Nitrogen 12 mg/dL (7-18); Bicarbonate 25 mmol/L (21-32); Glucose Level 101 mg/dL (74-106); Potassium 4.3 mmol/L (3.5-5.1); Sodium Level 139 mmol/L (136-145)
[2021-04-25 12:37] LABS: HCG, Quantitative 3304 mIU/mL (1-3)
[2021-04-28 17:42] LABS: C.trachomatis RNA,TMA Not Detected (Not Detected)
== END 2021-04-25 11:52 | disposition home or self-care (01) ==
LOC: ER 08:55
DX: O26.891 Other specified pregnancy related conditions, first trimester (principal); R10.2 Pelvic and perineal pain; R10.9 Unspecified abdominal pain; Z3A.00 Weeks of gestation of pregnancy not specified
CPT/HCPCS: 36415; 76817; 80048; 81003; 81025; 84702; 85025; 86900; 86901; 87210; 87490; 87590; 96372; 99284

== ENCOUNTER 2021-07-21 09:21 | Emergency (ER) | payer OTHER ==
[2021-07-21] MEDS ORDERED: CYCLOBENZAPRINE 10 MG TAB ONE (10:03)
[2021-07-21] MEDS ORDERED: KETOROLAC 30 MG/ML INJ ONE (10:04)
[2021-07-21] MEDS ORDERED: LIDOCAINE 4% PATCH ONE (10:04)
[2021-07-21 11:03] LABS: Urine Blood Negative (Negative); Urine Glucose Negative (Negative); Urine Protein Negative (Negative); Urine Specific Gravity >=1.030 (1.005-1.030)
[2021-07-21 11:40] LABS: Urine Specific Gravity/Preg >1.030 (1.005-1.030)
--- NOTE | 2021-07-21 11:55 | RAD REPORT ---
EXAM DESCRIPTION: RAD - Lumbar Spine 3 Views - 07/21/2021 11:40 am CLINICAL HISTORY: LOWER BACK PAIN Radiculopathy COMPARISON: No comparisons FINDINGS: Vertebral body heights appear maintained. No compression fracture noted. Disc spaces are m aintained. No spondylolysis or spondylolisthesis. IMPRESSION: Negative study.
--- NOTE | 2021-07-21 12:07 | EDPHYS ---
Physician Documentation [facility] Name: Gladis Meza Age: 25 yrs Sex: Female : 1995 Arrival Date: 07/21/2021 Time: : Bed 12 Private MD: ED Physician Evin Smith HPI: 07/21 10:09 This 25 yrs old Female presents to ER via Ambulatory with complaints of Back Pain. pm1 10:09 The patient presents with pain that is acute. The symptoms are located in the low back. pm1 Onset: The symptoms/episode began/occurred 2.5 week(s) ago. The pain does not radiate. Associated signs and symptoms: Pertinent negatives: dysuria, fever, incontinence, numbness, tingling. The problem was sustained from unknown cause. Modifying factors: the patient symptoms are aggravated by bending. Severity of symptoms: in the emergency department the symptoms are actually worse. The patient has not experienced similar symptoms in the past. The patient has not recently seen a physician. Historical: - Allergies: 09:41 NKDA; ww - Home Meds: 09:41 None [Active]; ww - PMHx: 09:41 None; ww - PSHx: 09:41 cyst removed from feet; ww - Immunization history:: Adult Immunizations up to date. - Social history:: Smoking status: Reported history of juuling and/or vaping. ROS: 10:09 Constitutional: Negative for fever, chills, and weight loss, Cardiovascular: Negative pm1 for chest pain, palpitations, and edema, Respiratory: Negative for shortness of breath, cough, wheezing, and pleuritic chest pain, Abdomen/GI: Negative for abdominal pain, nausea, vomiting, diarrhea, and constipation. 10:09 : Negative for injury, bleeding, discharge, and swelling, MS/Extremity: Negative for injury and deformity, Skin: Negative for injury, rash, and discoloration. 10:09 Neuro: Negative for headache, weakness, numbness, tingling, and seizure. 10:09 Back: Positive for pain with movement, of the low back area and sacrum. 10:09 All other systems are negative. Exam: 10:09 Constitutional: This is a well developed, well nourished patient who is awake, alert, pm1 and in no acute distress. Head/Face: Normocephalic, atraumatic. 10:09 Skin: Warm, dry with normal turgor. Normal color with no rashes, no lesions, and no evidence of cellulitis. MS/ Extremity: Pulses equal, no cyanosis. Neurovascular intact. Full, normal range of motion. 10:09 Eyes: Exam is negative for acute changes, Periorbital structures: appear normal, Pupils: no acute changes, Extraocular movements: no acute changes, Conjunctiva: no acute changes, no injection. 10:09 ENT: Exam is negative for acute changes, Mouth: no acute changes, Lips: normal, moist, Oral mucosa: normal, pink and intact, moist. 10:09 Cardiovascular: Exam negative for acute changes, Rate: normal, Rhythm: regular, Pulses: no pulse deficits are appreciated. 10:09 Respiratory: Exam negative for acute changes, respiratory distress, shortness of breath, Breath sounds: are clear throughout. 10:09 Neuro: Exam negative for acute changes, Orientation: is normal, Mentation: is normal, Motor: is normal, moves all fours. Vital Signs: 09:39 BP 115 / 72; Pulse 78; Resp 18; Temp 99.4; Pulse Ox 100% ; Weight 58.97 kg; Height 5 ww ft. 4 in. (162.56 cm); Pain 5/10; 09:39 Body Mass Index 22.31 (58.97 kg, 162.56 cm) ww MDM: 09:49 Patient medically screened. pm1 11:06 ED course: Patient requesting imaging because she feels that the pain is in her bones. 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 12:05 Data reviewed: vital signs. Data interpreted: Pulse oximetry: on room air is 100 %. pm1 Interpretation: normal. 12:05 Counseling: I had a detailed discussion with the patient and/or guardian regarding: the pm1 historical points, exam findings, and any diagnostic results supporting the discharge/admit diagnosis, radiology results, the need for outpatient follow up, to return to the emergency department if symptoms worsen or persist or if there are any questions or concerns that arise at home. 12:05 Medication response: patient reports mild improvement with lidoderm patch. pm1 07/21 11:02 Order name: Urine Dipstick-Ancillary; Complete Time: 11:08 EDMS 07/21 11:17 Order name: Test Urine - POC; Complete Time: 11:56 sp 07/21 11:06 Order name: Lumbar Spine (3 Views) XRAY; Complete Time: 11:56 pm1 07/21 10:32 Order name: Urine Dipstick-Ancillary (obtain specimen); Complete Time: 11:01 pm1 07/21 10:32 Order name: Urine Test (obtain specimen); Complete Time: 11:01 pm1 Administered Medications: 10:09 Drug: Flexeril (cyclobenzaprine) 10 mg Route: PO; aa5 11:00 Follow up: Response: No adverse reaction aa5 10:09 Drug: Ketorolac 60 mg Route: IM; Site: left gluteus; aa5 11:00 Follow up: Response: No adverse reaction aa5 10:10 Drug: Lidoderm Patch 5 % (700 mg/patch) 1 patches {Note: to left low back .} Route: aa5 Topical; Site: affected area; 11:00 Follow up: Response: No adverse reaction aa5 Disposition Summary: 07/21/21 12:07 Discharge Ordered Location: Home pm1 Problem: new pm1 Symptoms: have improved pm1 Condition: Stable pm1 Diagnosis - Lumbago pm1 - Strain of muscle, fascia and tendon of lower back pm1 Followup: pm1 - With: Emergency Department - When: As needed - Reason: Worsening of condition Followup: pm1 - With: Private Physician - When: 2 - 3 days - Reason: Recheck today's complaints, Continuance of care, Re-evaluation by your physician Discharge Instructions: - Discharge Summary Sheet pm1 - Acute Back Pain, Adult pm1 - Low Back Sprain or Strain Rehab-SportsMed pm1 Forms: - Medication Reconciliation Form pm1 - Thank You Letter pm1 - Antibiotic Education pm1 - Prescription Opioid Use pm1 Prescriptions: - Lidoderm 5 % Topical adhesive patch,medicated - apply 1 patch by TRANSDERMAL route once daily As needed 12 hours on and 12 pm1 hours off in a 24 hour period; 10 patch; Refills: 0, Product Selection Permitted - Cyclobenzaprine 10 mg Oral Tablet - take 1 tablet by ORAL route every 8 hours As needed; 30 tablet; Refills: 0, pm1 Product Selection Permitted - Diclofenac Sodium 75 mg Oral tablet,delayed release (DR/EC) - take 1 tablet by ORAL route 2 times per day As needed; 30 tablet; Refills: 0, pm1 Product Selection Permitted Addendum: 07/22/2021 18:25 Co-signature as Attending Physician, Evin Smith MD I agree with the assessment and c pope plan of care. Signatures: Dispatcher [employer] Evin Kaufman MD MD cha Calderon, Audri, RN RN aa5 Humberto Bacon, FEI REGULATORY ASSISTANT pm1 Kassy Mcadams RN RN ww
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
[2021-07-21 12:24] VITALS: BP 115/72; TEMP 99.4; O2SAT 100
== END 2021-07-21 12:19 | disposition home or self-care (01) ==
LOC: ER 09:21
DX: S39.012A Strain of muscle, fascia and tendon of lower back, initial encounter (principal)
CPT/HCPCS: 72100; 81003; 81025; 96372; 99283

== ENCOUNTER 2021-08-02 07:45 | Emergency (ER) | payer OTHER ==
[2021-08-02 08:27] LABS: Urine Blood Negative (Negative); Urine Glucose Negative (Negative); Urine Protein Negative (Negative); Urine Specific Gravity >=1.030 (1.005-1.030); Urine pH 5.5 (5.0-7.0)
--- NOTE | 2021-08-02 09:11 | RAD REPORT ---
EXAM DESCRIPTION: CT - Spine Lumbar Wo Con - 08/02/2021 8:37 am CLINICAL HISTORY: PAINin the lower back with intermittent bilateral lower extremity radiculopathy COMPARISON: None. TECHNIQUE: Thin section axial imaging of the lumbar spine was performed. Sagittal and coronal recon struction images were generated and reviewed. All CT scans are performed using dose optimization technique as appropriate and may include automated exposure control or mA/KV adjustment according to patient size. FINDINGS: Lumbar bodies are normal in height and alignment. No facet joint alignment abnormality and no pars defects are present. No acute bone process is identified. No paraspinal soft tissue mass is seen. Central canal detail is inherently limited on CT imaging. Minimal bulging of disc material present at L4-5. No canal or foramen stenosis identified. L5-S1 bulg ing disc material is seen contacting the thecal sac. No displacement of the S1 nerve roots seen. No SI joint abnormality identified. IMPRESSION: Central canal detail is inherently limited. Minimal disc bulging changes are evident at L4-5 and L5-S1. No resulting central spinal stenosis or nerve root displacement seen. No acute bone finding.
[2021-08-02] MEDS ORDERED: KETOROLAC 30 MG/ML INJ ONE (09:14)
[2021-08-02] MEDS ORDERED: METHYLPREDNISOLONE 125 MG INJ ONE (09:14)
[2021-08-02] MEDS ORDERED: CYCLOBENZAPRINE 10 MG TAB ONE (09:14)
--- NOTE | 2021-08-02 10:46 | ER ---
Nurse's Notes [facility] Name: Gladis Meza Age: 26 yrs Sex: Female : 1995 Arrival Date: 08/02/2021 Time: 07:46 Bed 6 Private MD: Diagnosis: Low back pain Presentation: 08/02 07:56 Chief complaint: Patient states: Continued back pain since last visit here. ll1 Chiropractor didn't help much. Coronavirus screen: Vaccine status: Patient reports receiving the 2nd dose of the covid vaccine. Client denies travel out of the [place] in the last 14 days. At this time, the client does not indicate any symptoms associated with coronavirus-19. Ebola Screen: Patient denies travel to an Ebola-affected area in the 21 days before illness onset. Initial Sepsis Screen: Does the patient meet any 2 criteria? No. Patient's initial sepsis screen is negative. Does the patient have a suspected source of infection? Yes: Bone or joint infection. Risk Assessment: Do you want to hurt yourself or someone else? Patient reports no desire to harm self or others. Onset of symptoms was July 21, 2021. 07:56 Method Of Arrival: Ambulatory ll1 07:56 Acuity: HOLLI 4 ll1 Triage Assessment: 07:57 General: Appears in no apparent distress. Behavior is calm, cooperative. Pain: ll1 Complains of pain in back Quality of pain is described as aching, Aggravated by increased activity. Musculoskeletal: Circulation, motion, and sensation intact. Capillary refill < 3 seconds. CLOSER ON: 07:58 LMP 07/27/2021 vg1 Historical: - Allergies: 07:57 NKDA; ll1 - PMHx: 07:57 None; ll1 - PSHx: 07:57 cyst removed from feet; ll1 - Immunization history:: Client reports receiving the 2nd dose of the Covid vaccine. - Social history:: Smoking status: Reported history of juuling and/or vaping. Screenin:58 Abuse screen: Denies threats or abuse. Nutritional screening: No deficits noted. vg1 Tuberculosis screening: No symptoms or risk factors identified. Fall Risk None identified. Assessment: 07:57 General: Appears in no apparent distress. comfortable, Behavior is calm, cooperative. vg1 Pain: Complains of pain in right leg and left leg and lower back Pain currently is 9 out of 10 on a pain scale. Pain began 2-3 days ago. Neuro: Level of Consciousness is awake, alert, obeys commands, Oriented to person, place, time, situation. Cardiovascular: Patient's skin is warm and dry. Respiratory: Airway is patent Respiratory effort is even, unlabored. GI: No signs and/or symptoms were reported involving the gastrointestinal system. : No signs and/or symptoms were reported regarding the genitourinary system. EENT: No signs and/or symptoms were reported regarding the EENT system. Derm: Skin is intact, is healthy with good turgor. Musculoskeletal: Circulation, motion, and sensation intact. 09:18 Reassessment: Patient appears in no apparent distress at this time. No changes from vg1 previously documented assessment. Patient and/or family updated on plan of care and expected duration. Pain level reassessed. Patient is alert, oriented x 3, equal unlabored respirations, skin warm/dry/pink. 10:20 Reassessment: Patient appears in no apparent distress at this time. No changes from vg1 previously documented assessment. Patient and/or family updated on plan of care and expected duration. Pain level reassessed. Patient is alert, oriented x 3, equal unlabored respirations, skin warm/dry/pink. Vital Signs: 07:56 Pulse 84; Resp 16; Temp 97.4; Pulse Ox 100% ; Weight 58.97 kg; Height 5 ft. 4 in. ll1 (162.56 cm); Pain 9/10; 07:58 BP 115 / 80; Pulse 75; Resp 15; Pulse Ox 100% ; vg1 09:00 BP 110 / 79; Pulse 80; Resp 16; Pulse Ox 100% ; vg1 10:00 BP 99 / 59; Pulse 74; Resp 15; Pulse Ox 99% ; vg1 11:05 BP 109 / 79; Pulse 72; Resp 16; Pulse Ox 100% ; vg1 07:56 Body Mass Index 22.31 (58.97 kg, 162.56 cm) ll1 ED Course: 07:46 Patient arrived in ED. am2 07:49 Abhinav Coyne MD is Attending Physician. kdr 07:52 Earlene Hillman RN is Primary Nurse. vg1 07:56 Arm band placed on Patient placed in an exam room, on a stretcher. ll1 07:57 Triage completed. ll1 07:58 Patient has correct armband on for positive identification. Bed in low position. Call vg1 light in reach. Side rails up X 1. 07:58 No provider procedures requiring assistance completed. vg1 08:39 CT Lumbar Spine Wo Con In Process Unspecified. EDMS 11:06 IV discontinued, intact, bleeding controlled, No redness/swelling at site. Pressure vg1 dressing applied. Administered Medications: 09:12 Drug: SOLU-Medrol (methylPrednisoLONE) 125 mg Route: IVP; Site: right antecubital; vg1 11:07 Follow up: Response: No adverse reaction; Marked relief of symptoms vg1 09:15 Drug: Ketorolac 15 mg Route: IVP; Site: right antecubital; vg1 11:07 Follow up: Response: No adverse reaction; Marked relief of symptoms vg1 09:17 Drug: Flexeril (cyclobenzaprine) 10 mg Route: PO; vg1 11:07 Follow up: Response: No adverse reaction; Marked relief of symptoms vg1 Outcome: 10:45 Discharge ordered by . kdr 11:06 Discharged to home ambulatory. vg1 11:06 Condition: good 11:06 Discharge instructions given to patient, Instructed on discharge instructions, follow up and referral plans. medication usage, Demonstrated understanding of instructions, follow-up care, medications, Prescriptions given X 3. 11:06 Patient left the ED. vg1 Signatures: Dispatcher [employer] EDAK Abhinav Coyne MD MD kdr Moreno, Amanda am2 Garcia, Victoria, RN RN vg1 Grzegorz Tapia RN RN ll1
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
[2021-08-02 11:11] VITALS: TEMP 97.4
[2021-08-02 11:16] VITALS: BP 109/79; O2SAT 100
[2021-08-02 13:36] LABS: Urine Specific Gravity/Preg >1.030 (1.005-1.030)
== END 2021-08-02 11:06 | disposition home or self-care (01) ==
LOC: ER 07:45
DX: M54.50 Low back pain, unspecified (principal)
CPT/HCPCS: 81025; 81003; 72131; 96375; 96374; 99283; J2930

== ENCOUNTER 2021-10-14 01:21 | Emergency (ER) | payer OTHER ==
[2021-10-14] MEDS ORDERED: LIDOCAINE 1% W/EPI 1:100,000 MDV 20 ML VIAL ONE (01:49)
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
[2021-10-14 03:38] VITALS: BP 112/68; O2SAT 98
--- NOTE | 2021-10-14 12:51 | EKG ---
Test Date: 2021-10-14 Test Time: 01:32:33 Child Protective Services Social Worker: AUGUST MEASUREMENT RESULTS: Intervals: Rate: 114 ME: 158 QRSD: 80 QT: 330 QTc: 454 [place]: P: 72 ME: 158 QRS: 70 T: -7 INTERPRETIVE STATEMENTS: Sinus tachycardia T wave abnormality, consider inferior ischemia Abnormal ECG Compared to ECG 02/16/2020 14:59:02 Possible ischemia now present Sinus rhythm no longer present T-wave abnormality still present Electronically Signed On 10-14-21 12:50:26 CDT by David Huerta
--- NOTE | 2021-10-15 13:22 | EKG ---
Test Date: 2021-10-14 Test Time: 01:33:06 Hide Cleaner: AUGUST MEASUREMENT RESULTS: Intervals: Rate: 104 SC: 162 QRSD: 82 QT: 356 QTc: 468 [place]: P: 75 SC: 162 QRS: 78 T: 28 INTERPRETIVE STATEMENTS: Sinus tachycardia Otherwise normal ECG Compared to ECG 10/14/2021 01:32:33 T-wave abnormality no longer present Possible ischemia no longer present Electronically Signed On 10-15-21 13:20:07 CDT by David Huerta
== END 2021-10-14 02:15 | disposition home or self-care (01) ==
LOC: ER 01:21
DX: S01.81XA Laceration without foreign body of other part of head, initial encounter (principal); Y04.2XXA Assault by strike against or bumped into by another person, initial encounter; Y93.89 Activity, other specified; Y92.9 Unspecified place or not applicable; F41.9 Anxiety disorder, unspecified; F17.290 Nicotine dependence, other tobacco product, uncomplicated
CPT/HCPCS: 93005; 99284

== ENCOUNTER 2022-07-05 03:33 | Emergency (ER) | payer OTHER ==
[2022-07-05 04:28] LABS: Urine Blood 3+ (Negative); Urine Glucose Negative (Negative); Urine Protein 3+ (Negative); Urine Specific Gravity >=1.030 (1.005-1.030)
[2022-07-05 04:32] LABS: Urine Specific Gravity/Preg >1.030 (1.005-1.030)
[2022-07-05] MEDS ORDERED: ONDANSETRON 4 MG/2 ML VIAL ONE (04:34)
[2022-07-05] MEDS ORDERED: MORPHINE 4 MG/ML SYR ONE (04:34)
[2022-07-05] MEDS ORDERED: NA CHLORIDE 0.9% 1,000 ML ONE ×2 (04:34→06:43)
[2022-07-05 04:38] LABS: Absolute Lymphocytes (CBC) 0.2 K/uL (0.7-4.9); Hematocrit 36.2 % (36.0-45.0); Lymphocytes % 2.2 % (15.3-44.8); MCV 92.9 fL (80-100); MPV 8.3 fL (7.6-11.3); RBC Red Blood Cell Count 3.89 M/uL (3.86-4.86)
[2022-07-05 04:56] LABS: Albumin 3.6 g/dL (3.4-5.0); Bilirubin Total 1.3 mg/dL (0.2-1.0); Potassium 3.4 mmol/L (3.5-5.1); Protein, Total 6.4 g/dL (6.4-8.2)
[2022-07-05 05:12] LABS: SARS-COV-2 RT PCR NEGATIVE (NEGATIVE)
[2022-07-05] MEDS ORDERED: METRONIDAZOLE 500mg IVPB 500 MG/100 ML BAG IV ONE (06:44)
[2022-07-05] MEDS ORDERED: CIPROFLOXACIN 400mg IV 400 MG/200 ML BAG IV ONE (06:44)
--- NOTE | 2022-07-05 07:03 | ER ---
Nurse's Notes [facility] Name: Gladis Meza Age: 26 yrs Sex: Female : 1995 Arrival Date: 07/05/2022 Time: 03:33 Bed 8 Private MD: Diagnosis: Infectious gastroenteritis and colitis, unspecified;Fever, unspecified;Dehydration Presentation: 07/05 04:00 Chief complaint: Patient states: "I'm having really bad pain all over. I was running a vc1 103 temperature and I have diarrhea really bad.". Coronavirus screen: Vaccine status: Patient reports receiving the 1st dose of the Covid vaccine. diarrhea, fever, muscle pain, Client presents with at least one sign or symptom that may indicate coronavirus-19. Standard/surgical mask placed on the client. Provider contacted for isolation considerations. Ebola Screen: No symptoms or risks identified at this time. Initial Sepsis Screen: Does the patient meet any 2 criteria? HR > 90 bpm. No. Patient's initial sepsis screen is negative. Does the patient have a suspected source of infection? Yes: Acute abdominal pain. Risk Assessment: Do you want to hurt yourself or someone else? Patient reports no desire to harm self or others. Onset of symptoms was July 05, 2022. 04:00 Method Of Arrival: Ambulatory vc1 04:00 Acuity: HOLLI 3 vc1 Triage Assessment: 04:04 General: Appears in no apparent distress. ill, Behavior is calm, cooperative, vc1 appropriate for age. Pain: Complains of pain in "All over and my stomach" Pain does not radiate. Pain currently is 9 out of 10 on a pain scale. EENT: No deficits noted. Neuro: Level of Consciousness is awake, alert, obeys commands, Oriented to person, place, time, situation, Appropriate for age. Cardiovascular: No deficits noted. Respiratory: Airway is patent Respiratory effort is even, unlabored, Respiratory pattern is regular, symmetrical. GI: No deficits noted. No signs and/or symptoms were reported involving the gastrointestinal system. GI: Reports lower abdominal pain, upper abdominal pain, diarrhea, nausea. : No deficits noted. Derm: No deficits noted. Musculoskeletal: No deficits noted. 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 - Social history:: Smoking status: Reported history of juuling and/or vaping. - Family history:: not pertinent. - Hospitalizations: : No recent hospitalization is reported. Screenin:07 Abuse screen: Denies threats or abuse. Nutritional screening: No deficits noted. vc1 Tuberculosis screening: No symptoms or risk factors identified. 06:48 [facility] ED Fall Risk Assessment (Adult) Score/Fall Risk Level 0 - 2 = Low Risk. as6 Assessment: 06:01 General: Appears in no apparent distress. Behavior is calm, cooperative. Neuro: Level kd3 of Consciousness is awake, alert, obeys commands, Oriented to person, place, time, situation. Cardiovascular: Patient's skin is warm and dry. Respiratory: Airway is patent Trachea midline Respiratory effort is even, unlabored, Respiratory pattern is regular, symmetrical. 06:48 General: "my pain is starting to come back". as6 07:00 Reassessment: Report received from operations supervisor 2nd shift RN. ll1 08:30 Reassessment: Patient appears in no apparent distress at this time. Patient and/or hb family updated on plan of care and expected duration. Pain level reassessed. Patient is alert, oriented x 3, equal unlabored respirations, skin warm/dry/pink. 08:36 Reassessment: No changes from previously documented assessment. Patient and/or family ll1 updated on plan of care and expected duration. Pain level reassessed. Patient is alert, oriented x 3, equal unlabored respirations, skin warm/dry/pink. Vital Signs: 04:00 BP 114 / 63; Pulse 121; Resp 15; Temp 99.8; Pulse Ox 97% on R/A; Weight 56.7 kg; Height vc1 5 ft. 4 in. (162.56 cm); Pain 9/10; 04:37 BP 109 / 75; Pulse 116; Resp 19; Pulse Ox 99% on R/A; kd3 06:02 BP 94 / 43; Pulse 99; Resp 19; Pulse Ox 99% on R/A; kd3 06:29 BP 113 / 37; rn 06:48 BP 100 / 55; Pulse 103; Resp 16 S; Pulse Ox 100% on R/A; as6 07:47 Pulse 101; Resp 16; Pulse Ox 97% on R/A; ll1 08:35 BP 96 / 59; Pulse 101; Resp 15; Pulse Ox 97% ; ll1 04:00 Body Mass Index 21.46 (56.70 kg, 162.56 cm) vc1 ED Course: 03:33 Patient arrived in ED. jj6 03:34 Leo Bob MD is Attending Physician. rn 04:03 Triage completed. vc1 04:06 Arm band placed on right wrist. vc1 04:10 Maribel Fleming, VIKKI is Primary Nurse. kd3 04:27 CBC with Diff Sent. kd3 04:27 CMP Sent. kd3 04:27 Lipase Sent. kd3 04:27 COVID-19/FLU A+B Sent. kd3 05:20 CT Abd/Pelvis - IV Contrast Only In Process Unspecified. EDMS 06:48 Bed in low position. Call light in reach. Side rails up X2. as6 07:48 No provider procedures requiring assistance completed. ll1 08:36 IV discontinued, intact, bleeding controlled, No redness/swelling at site. Pressure ll1 dressing applied. Administered Medications: 04:37 Drug: NS 0.9% 1000 ml Route: IV; Rate: 1 bolus; Site: right antecubital; kd3 06:47 Follow up: Response: No adverse reaction; IV Status: Completed infusion; IV Intake: as6 1000ml 04:37 Drug: Zofran (Ondansetron) 4 mg Route: IVP; Site: right antecubital; kd3 06:47 Follow up: Response: No adverse reaction as6 04:37 Drug: morphine 4 mg Route: IVP; Infused Over: 4 mins; Site: right antecubital; kd3 06:47 Follow up: Response: No adverse reaction as6 06:47 Drug: NS 0.9% 1000 ml Route: IV; Rate: 1000 ml; Site: right antecubital; as6 07:49 Follow up: Response: No adverse reaction; IV Status: Completed infusion; IV Intake: ll1 1000ml 06:47 Drug: Flagyl (metroNIDAZOLE) 500 mg Volume: 100 ml; Route: IVPB; Rate: 200 ml/hr; as6 Infused Over: 30 mins; Site: right antecubital; 07:19 Follow up: Response: No adverse reaction; IV Status: Completed infusion; IV Intake: ll1 100ml 07:22 Drug: Cipro (ciprofloxacin) 400 mg Volume: 200 ml; Route: IVPB; Infused Over: 60 mins; hb Site: right antecubital; 08:37 Follow up: IV Status: Completed infusion; IV Intake: 200ml ll1 Medication: 04:08 VIS not applicable for this client. vc1 Intake: 06:47 IV: 1000ml; Total: 1000ml. as6 07:19 IV: 100ml; Total: 1100ml. ll1 07:49 IV: 1000ml; Total: 2100ml. ll1 08:37 IV: 200ml; Total: 2300ml. ll1 Outcome: 07:02 Discharge ordered by . rn 08:36 Discharged to home ambulatory. hb 08:36 Condition: stable 08:36 Discharge instructions given to patient, Instructed on discharge instructions, follow up and referral plans. medication usage, Demonstrated understanding of instructions, follow-up care, medications, Prescriptions given X 4. 08:36 Patient left the ED. hb Signatures: Dispatcher [employer] EDMS Leo Bob MD MD rn Baxter, Heather, RN RN hb Grzegorz Tapia RN RN ll1 Carolynn Gil Ashby, RN RN as6 Maribel Fleming RN RN kd3 Philomena Mandujano RN RN vc1
--- NOTE | 2022-07-05 07:03 | EDPHYS ---
Physician Documentation [facility] Name: Gladis Meza Age: 26 yrs Sex: Female : 1995 Arrival Date: 07/05/2022 Time: 03:33 Bed 8 Private MD: ED Physician Leo Bob HPI: 07/05 04:18 This 26 yrs old Female presents to ER via Ambulatory with complaints of Fever. rn 04:18 The patient reports fever, that was measured at 103 degrees Fahrenheit. Onset: The rn symptoms/episode began/occurred last night. Modifying factors: The patient has had contact with sick co-worker(s). Associated signs and symptoms: Pertinent positives: abdominal pain, chills, cough, diarrhea, Pertinent negatives: altered mental status, skin rash, shortness of breath. Severity of symptoms: At their worst the symptoms were moderate in the emergency department the symptoms have improved. The patient has not experienced similar symptoms in the past. The patient has not recently seen a physician. 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 - Social history:: Smoking status: Reported history of juuling and/or vaping. - Family history:: not pertinent. - Hospitalizations: : No recent hospitalization is reported. 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 Head/Face: Normocephalic, atraumatic. ENT: dry MM Cardiovascular: Tachycardic, regular. No pulse deficits. Respiratory: No increased work of breathing, no retractions or nasal flaring. Abdomen/GI: Soft, + mid abd tenderness, no rebound Skin: Warm, dry MS/ Extremity: Pulses equal, no cyanosis. Neuro: Awake and alert, GCS 15 Vital Signs: 04:00 BP 114 / 63; Pulse 121; Resp 15; Temp 99.8; Pulse Ox 97% on R/A; Weight 56.7 kg; Height vc1 5 ft. 4 in. (162.56 cm); Pain 9/10; 04:37 BP 109 / 75; Pulse 116; Resp 19; Pulse Ox 99% on R/A; kd3 06:02 BP 94 / 43; Pulse 99; Resp 19; Pulse Ox 99% on R/A; kd3 06:29 BP 113 / 37; rn 06:48 BP 100 / 55; Pulse 103; Resp 16 S; Pulse Ox 100% on R/A; as6 07:47 Pulse 101; Resp 16; Pulse Ox 97% on R/A; ll1 08:35 BP 96 / 59; Pulse 101; Resp 15; Pulse Ox 97% ; ll1 04:00 Body Mass Index 21.46 (56.70 kg, 162.56 cm) vc1 MDM: 03:34 Patient medically screened. rn 06:36 Differential diagnosis: viral Infection, bacterial infection, gastroenteritis, colitis, rn COVID, Flu. Data reviewed: vital signs, nurses notes. 06:37 Consideration of Admission/Observation Escalation of care including rehab rn/observation considered. Counseling: I had a detailed discussion with the patient and/or guardian regarding: the historical points, exam findings, and any diagnostic results supporting the discharge/admit diagnosis, lab results, radiology results, the need for outpatient follow up, to return to the emergency department if symptoms worsen or persist or if there are any questions or concerns that arise at home. Response to treatment: the patient's symptoms have markedly improved after treatment, and as a result, I will discharge patient. Special discussion: Based on the patient's Hx, exam, and Dx evaluation, there is no indication for emergent surgery or inpatient Tx. It is understood by the patient/guardian that if the Sx's persist or worsen they need to return immediately for re-evaluation. I discussed with the patient/guardian in detail that at this point there is no indication for admission to the hospital. It is understood, however, that if the symptoms persist or worsen the patient needs to return immediately for re-evaluation. ED course: CT shows nonspecific colitis, normal WBC, vitals improving, patient feels better. WIll dc home with abx given colitis and not just enteritis, as well as prn pain/nausea medication. 07/05 04:07 Order name: COVID-19/FLU A+B; Complete Time: 05:57 rn 07/05 04:07 Order name: CBC with Diff; Complete Time: 04:49 rn 07/05 04:07 Order name: CMP; Complete Time: 05:57 rn 07/05 04:07 Order name: Lipase; Complete Time: 05:57 rn 07/05 04:28 Order name: Urine Dipstick-Ancillary; Complete Time: 04:49 EDMS 07/05 04:29 Order name: Urine --Ancillary (enter results) wm 07/05 04:07 Order name: CT Abd/Pelvis - IV Contrast Only rn 07/05 04:07 Order name: IV Saline Lock; Complete Time: 04:27 rn 07/05 04:07 Order name: Labs collected and sent; Complete Time: 04:27 rn 07/05 04:07 Order name: Urine Dipstick-Ancillary (obtain specimen); Complete Time: 04:27 rn 07/05 04:07 Order name: Urine Test (obtain specimen); Complete Time: 04:27 rn Administered Medications: 04:37 Drug: NS 0.9% 1000 ml Route: IV; Rate: 1 bolus; Site: right antecubital; kd3 06:47 Follow up: Response: No adverse reaction; IV Status: Completed infusion; IV Intake: as6 1000ml 04:37 Drug: Zofran (Ondansetron) 4 mg Route: IVP; Site: right antecubital; kd3 06:47 Follow up: Response: No adverse reaction as6 04:37 Drug: morphine 4 mg Route: IVP; Infused Over: 4 mins; Site: right antecubital; kd3 06:47 Follow up: Response: No adverse reaction as6 06:47 Drug: NS 0.9% 1000 ml Route: IV; Rate: 1000 ml; Site: right antecubital; as6 07:49 Follow up: Response: No adverse reaction; IV Status: Completed infusion; IV Intake: ll1 1000ml 06:47 Drug: Flagyl (metroNIDAZOLE) 500 mg Volume: 100 ml; Route: IVPB; Rate: 200 ml/hr; as6 Infused Over: 30 mins; Site: right antecubital; 07:19 Follow up: Response: No adverse reaction; IV Status: Completed infusion; IV Intake: ll1 100ml 07:22 Drug: Cipro (ciprofloxacin) 400 mg Volume: 200 ml; Route: IVPB; Infused Over: 60 mins; hb Site: right antecubital; 08:37 Follow up: IV Status: Completed infusion; IV Intake: 200ml ll1 Disposition Summary: 07/05/22 07:02 Discharge Ordered Location: Home rn Problem: new rn Symptoms: have improved rn Condition: Stable rn Diagnosis - Infectious gastroenteritis and colitis, unspecified rn - Fever, unspecified rn - Dehydration rn Followup: rn - With: Private Physician - When: As needed - Reason: Recheck today's complaints, Re-evaluation by your physician Discharge Instructions: - Discharge Summary Sheet rn - Dehydration, Adult rn - Fever, Adult rn - Nausea and Vomiting, Adult rn - Colitis rn Forms: - Medication Reconciliation Form rn - Thank You Letter rn - Antibiotic government gauger - Prescription Opioid Use rn - Work release form Prescriptions: - Cipro 500 mg Oral Tablet - take 1 tablet by ORAL route every 12 hours for 7 days; 14 tablet; Refills: 0, rn Product Selection Permitted - Flagyl 500 mg Oral Tablet - take 1 tablet by ORAL route every 12 hours for 7 days; 14 tablet; Refills: 0, rn Product Selection Permitted - Tramadol 50 mg Oral Tablet - take 1 tablet by ORAL route every 8 hours as needed; 12 tablet; Refills: 0, rn Product Selection Permitted - ondansetron 4 mg Oral - take 4 milligrams by SUBLINGUAL route every 8 hours; 15 tablet; Refills: 0, rn Product Selection Permitted Signatures: Dispatcher [employer] Leo Regalado MD MD rn Baxter, Heather RN RN Mariano Livingston RN RN as6 Maribel Fleming RN RN kd3 Philomena Mandujano, RN RN 1 Grzegorz Tapia RN ll1
[2022-07-05 08:42] VITALS: TEMP 99.8
[2022-07-05 08:47] VITALS: O2SAT 97
[2022-07-05 08:49] VITALS: BP 96/59
--- NOTE | 2022-07-05 22:19 | RAD REPORT ---
EXAM DESCRIPTION: CT - Abdomen Pelvis W Contrast - 07/05/2022 6:54 am CLINICAL HISTORY: Abdominal pain, fever, diarrhea TECHNIQUE: Axial computed tomography images of the abdomen and pelvis with intravenous contrast. S agittal and coronal reformatted images were created and reviewed. This CT exam was performed using one or more of the following dose reduction techniques: automated exposure control, adjustment of t he mA and/or kV according to patient size, and/or use of iterative reconstruction technique. COMPARISON: No relevant prior studies available. FINDINGS: Lung bases: Unremarkable. No mass. No consolidation. ABDOMEN: Liver: Unremarkable. No mass. Gallbladder and bile ducts: Unremarkable. No calcified stones. No ductal dilation. Pancreas: Unremarkable. No mass. No ductal dilation. Spleen: Unremarkable. No splenomegaly. Adrenals: Unremarkable. No mass. Kidneys and ureters: Unremarkable. No solid mass. No hydronephrosis. Stomach and bowel: Moderate thickening of the large bowel from the cecum to the mid transverse colo n. No obstruction. PELVIS: Appendix: Normal caliber appendix. No findings to suggest acute appendicitis. Bladder: The urinary bladder is decompressed. Reproductive: Right ovarian cyst measuring 5.1 x 4 x 3.9 cm. There are a couple adjacent ovarian cysts on the left measuring 3.3 x 2.1 x 2 cm and 4 x 3.5 x 2.9 cm. The uterus is unremarkable as vi sualized. ABDOMEN and PELVIS: Intraperitoneal space: Unremarkable. No free air. No significant fluid collection. Bones/joints: No acute fracture. No dislocation. Soft tissues: Unremarkable. Vasculature: Unremarkable. No abdominal aortic aneurysm. Lymph nodes: Unremarkable. No enlarged lymph nodes. IMPRESSION: 1. Findings compatible with nonspecific colitis. 2. Bilateral ovarian cysts measuring 5.1 cm on the right and 3.3 cm and 4 cm on the left. 3. Other findings as above. Electronically signed by: Darcy Arce MD 07/05/2022 5:36 AM SCOW HAND Due to temporary technical issues with the PACS/Fluency reporting system, reports are being signed by the in house radiologists without review as a courtesy to insure prompt reporting. The interpreting radiologist is fully responsible for the content of the report.
== END 2022-07-05 08:36 | disposition home or self-care (01) ==
LOC: ER 03:33
DX: A09 Infectious gastroenteritis and colitis, unspecified (principal); E86.0 Dehydration; Z20.822 Contact with and (suspected) exposure to COVID-19
CPT/HCPCS: 96365; 96367; 96361; 85025; 36415; 81025; 81003; 83690; 80053; 0240U; 74177; 96375; 99284; Q9967; J7030 ×2; J2405; J0744

== ENCOUNTER 2023-01-09 13:44 | Emergency (ER) | payer OTHER ==
[2023-01-09] MEDS ORDERED: ONDANSETRON 4 MG (ODT) TAB ONE (14:45)
[2023-01-09 14:54] LABS: SARS-CoV-2 Antigen Rapid Res Negative (Negative)
--- NOTE | 2023-01-09 15:11 | EDPHYS ---
Physician Documentation [facility] Name: Gladis Meza Age: 27 yrs Sex: Female : 1995 Arrival Date: 01/09/2023 Time: 13:44 Bed 10 Private MD: ED Physician Hubert Hogue HPI: 01/09 14:00 This 27 yrs old Female presents to ER via Ambulatory with complaints of Fever, jh7 Nausea/Vomiting, Sore throat. 14:00 The patient reports fever, not measured (subjective). jh7 14:00 Onset: The symptoms/episode began/occurred yesterday. jh7 14:00 Associated signs and symptoms: Pertinent positives: nausea, sore throat, vomiting. jh7 Patient's daughter was recently diagnosed with strep. 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 - Social history:: Smoking status: Reported history of juuling and/or vaping. ROS: 14:00 Eyes: Negative for injury, pain, redness, and discharge, Cardiovascular: Negative for jh7 chest pain, palpitations, and edema, Respiratory: Negative for shortness of breath, cough, wheezing, and pleuritic chest pain, Back: Negative for injury and pain, MS/Extremity: Negative for injury and deformity, Skin: Negative for injury, rash, and discoloration, Neuro: Negative for headache, weakness, numbness, tingling, and seizure. 14:00 Constitutional: Positive for fever. 14:00 ENT: Positive for sore throat. 14:00 Abdomen/GI: Positive for nausea and vomiting, Negative for diarrhea. 14:00 All other systems are negative. Exam: 14:00 Constitutional: This is a well developed, well nourished patient who is awake, alert, jh7 and in no acute distress. Eyes: Pupils equal round and reactive to light, extra-ocular motions intact. Lids and lashes normal. Conjunctiva and sclera are non-icteric and not injected. Cornea within normal limits. Periorbital areas with no swelling, redness, or edema. Neck: Trachea midline, no thyromegaly or masses palpated, and no cervical lymphadenopathy. Supple, full range of motion without nuchal rigidity, or vertebral point tenderness. No Meningismus. Cardiovascular: Regular rate and rhythm with a normal S1 and S2. No gallops, murmurs, or rubs. Normal PMI, no JVD. No pulse deficits. Respiratory: Lungs have equal breath sounds bilaterally, clear to auscultation and percussion. No rales, rhonchi or wheezes noted. No increased work of breathing, no retractions or nasal flaring. Abdomen/GI: Soft, non-tender, with normal bowel sounds. No distension or tympany. No guarding or rebound. No evidence of tenderness throughout. Skin: Warm, dry with normal turgor. Normal color with no rashes, no lesions, and no evidence of cellulitis. MS/ Extremity: Pulses equal, no cyanosis. Neurovascular intact. Full, normal range of motion. Neuro: Awake and alert, GCS 15, oriented to person, place, time, and situation. Motor strength 5/5 in all extremities. Sensory grossly intact. Normal gait. 14:00 ENT: Posterior pharynx: swelling, is not appreciated, erythema, that is moderate, exudate, is not appreciated. Vital Signs: 13:53 BP 115 / 78; Pulse 108; Resp 16; Temp 98.1; Pulse Ox 100% ; Weight 52.62 kg; Height 5 ap3 ft. 4 in. ; Pain 3/10; 15:20 BP 112 / 72; Pulse 74; Resp 16; Pulse Ox 100% on R/A; mb9 13:53 Body Mass Index 19.91 (52.62 kg, 162.56 cm) ap3 13:53 Pain Scale: Adult ap3 MDM: 13:48 Patient medically screened. 7 15:15 Differential diagnosis: viral Infection, bacterial infection, Strep throat, acute jh7 pharyngitis, peritonsillar abscess. Data reviewed: vital signs, nurses notes, lab test result(s). Counseling: I had a detailed discussion with the patient and/or guardian regarding the historical points, exam findings, and any diagnostic results supporting the discharge/admit diagnosis, to return to the emergency department if symptoms worsen or persist or if there are any questions or concerns that arise at home. Response to treatment: the patient's symptoms have mildly improved after treatment. 08/31 14:25 Order name: Strep [facility] 01/09 14:25 Order name: SARS RAPID; Complete Time: 15:07 [facility] 01/09 14:25 Order name: Flu; Complete Time: 15:07 [facility] 01/09 15:09 Order name: Throat Culture EDMN Administered Medications: 14:35 Drug: Ondansetron PO 4 mg Route: PO; mb9 Disposition: 18:31 Co-signature as Attending Physician, Hubert Hogue DO I was immediately available on-site ms3 in the Emergency Department for consultation in the care of the patient. Disposition Summary: 01/09/23 15:10 Discharge Ordered Location: Home [facility] Problem: new [facility] Symptoms: are unchanged [facility] Condition: Stable [facility] Diagnosis - Acute pharyngitis, unspecified [facility] - Nausea with vomiting, unspecified [facility] Followup: [facility] - With: Private Physician - When: 2 - 3 days - Reason: Recheck today's complaints Discharge Instructions: - Discharge Summary Sheet [facility] - Nausea and Vomiting, Adult [facility] - Pharyngitis [facility] Forms: - Work release form [facility] - Medication Reconciliation Form [facility] - Thank You Letter [facility] - Antibiotic Education [facility] - Patient Portal Instructions [facility] - Leadership Thank You Letter [facility] Prescriptions: - ondansetron 4 mg Oral Tablet,disintegrating - take 1 tablet by ORAL route every 4-6 hours As needed; 20 tablet; Refills: 0, [facility] Product Selection Permitted - Amoxicillin 500 mg Oral Capsule - take 1 capsule by ORAL route 2 times per day for 7 days; 14 tablet; Refills: 0, [facility] Product Selection Permitted Signatures: Dispatcher [employer] Pam Marte RN VIKKI ap3 Hubert Hogue DO DO ms3 Carolynn Hugo, MIDDLE SCHOOL GUIDANCE COUNSELOR [employer] GUIDANCE COUNSELOR 7 Manda Navarro RN RN mb9 Corrections: (The following items were deleted from the chart) 17:11 14:00 The patient reports fever, not measured (subjective), [place] [id number]
--- NOTE | 2023-01-09 15:11 | ER ---
Nurse's Notes [facility] Name: Gladis Meza Age: 27 yrs Sex: Female : 1995 Arrival Date: 01/09/2023 Time: 13:44 Bed 10 Private MD: Diagnosis: Acute pharyngitis, unspecified;Nausea with vomiting, unspecified Presentation: 01/09 13:53 Chief complaint: Patient states: she has been having fever, chills, body aches and sore ap3 throat since yesterday at approx 1500. Coronavirus screen: Client presents with at least one sign or symptom that may indicate coronavirus-19. Ebola Screen: No symptoms or risks identified at this time. Initial Sepsis Screen: Does the patient meet any 2 criteria? No. Patient's initial sepsis screen is negative. Does the patient have a suspected source of infection? No. Patient's initial sepsis screen is negative. Risk Assessment: Do you want to hurt yourself or someone else? Patient reports no desire to harm self or others. Onset of symptoms was January 08, 2023. 13:53 Method Of Arrival: Ambulatory ap3 13:53 Acuity: HOLLI 4 ap3 Triage Assessment: 13:54 General: Appears ill, Behavior is calm, cooperative, appropriate for age. Pain: ap3 Complains of pain in throat, and generalized body aches. EENT: Reports pain when swallowing. Neuro: Level of Consciousness is awake, alert, confused, Oriented to person, place, time, situation. Cardiovascular: Patient's skin is warm and dry. Respiratory: Airway is patent Respiratory effort is even, unlabored, Respiratory pattern is regular, symmetrical. GI: Reports nausea, from nasal drainage. : Reports approx 6 weeks . POLICY SERVICES REPRESENTATIVE: 13:59 LMP N/A - mb9 Historical: - Allergies: 13:54 NKDA; ap3 - PMHx: 13:54 Anxiety; ap3 - PSHx: 13:54 cyst removed from feet; ap3 - Immunization history:: Client reports receiving the 2nd dose of the Covid vaccine. - Social history:: Smoking status: Reported history of juuling and/or vaping. Screenin:55 [facility] ED Fall Risk Assessment (Adult) History of falling in the last 3 months, ap3 including since admission No falls in past 3 months (0 pts). Abuse screen: Denies threats or abuse. Nutritional screening: No deficits noted. Tuberculosis screening: No symptoms or risk factors identified. Assessment: 13:57 General: Appears uncomfortable, Behavior is cooperative, appropriate for age. Pain: mb9 Complains of pain in throat. Neuro: Mina Agitation-Sedation Scale (RASS): 0 - Alert and Calm. Cardiovascular: Patient's skin is warm and dry. Respiratory: Airway is patent Respiratory effort is even, unlabored, Respiratory pattern is regular, symmetrical, Breath sounds are clear bilaterally. GI: Abdomen is flat, non-distended, Bowel sounds present X 4 quads. Abd is soft and non tender X 4 quads. Reports nausea. GI: Reports. : No signs and/or symptoms were reported regarding the genitourinary system. EENT: Throat is reddened Reports nasal congestion. Derm: Skin is pink, warm \T\ dry. Musculoskeletal: Range of motion: intact in all extremities. Vital Signs: 13:53 BP 115 / 78; Pulse 108; Resp 16; Temp 98.1; Pulse Ox 100% ; Weight 52.62 kg; Height 5 ap3 ft. 4 in. ; Pain 3/10; 15:20 BP 112 / 72; Pulse 74; Resp 16; Pulse Ox 100% on R/A; mb9 13:53 Body Mass Index 19.91 (52.62 kg, 162.56 cm) ap3 13:53 Pain Scale: Adult ap3 ED Course: 13:47 Patient arrived in ED. ts1 13:47 [facility]. jh7 13:47 Hubert Hogue DO is Attending Physician. jh7 13:54 Triage completed. ap3 13:55 Arm band placed on right wrist. ap3 13:57 Manda Navarro, VIKKI is Primary Nurse. mb9 13:59 Bed in low position. Call light in reach. Side rails up X 1. Client placed on mb9 continuous cardiac and pulse oximetry monitoring. NIBP monitoring applied. 13:59 No provider procedures requiring assistance completed. mb9 14:25 Patient did not have IV access during this emergency room visit. mb9 14:33 Flu Sent. mb9 14:33 SARS RAPID Sent. mb9 14:33 Strep Sent. mb9 Administered Medications: 14:35 Drug: Ondansetron PO 4 mg Route: PO; mb9 Medication: 13:59 VIS not applicable for this client. mb9 Outcome: 15:10 Discharge ordered by . mary 15:20 Discharged to home ambulatory. mb9 15:20 Condition: stable 15:20 Discharge instructions given to patient, Instructed on discharge instructions, follow up and referral plans. Demonstrated understanding of instructions, follow-up care, medications, Prescriptions given X 2. 15:20 Patient left the ED. mb9 Signatures: Pam Arias RN RN ap3 Carolynn Hugo, TELETYPESETTER MONITOR TELETYPESETTER MONITOR 7 Manda Navarro RN RN mb9 Ayleen Kimble, PAS PAS ts1
[2023-01-09 16:45] VITALS: BP 115/78; TEMP 98.1; O2SAT 100
== END 2023-01-09 15:20 | disposition home or self-care (01) ==
LOC: ER 13:44
DX: J02.9 Acute pharyngitis, unspecified (principal); R11.2 Nausea with vomiting, unspecified; R50.9 Fever, unspecified; Z20.822 Contact with and (suspected) exposure to COVID-19
CPT/HCPCS: 87070; 36415; 87081; 87804 ×2; 99284; 87811; Q0162

== ENCOUNTER 2023-04-12 17:20 | Emergency (ER) | payer OTHER ==
[2023-04-12] MEDS ORDERED: ACETAMINOPHEN 325 MG TABLET ONE (17:51)
--- NOTE | 2023-04-12 18:50 | EDPHYS ---
Physician Documentation [facility] Name: Gladis Meza Age: 27 yrs Sex: Female : 1995 Arrival Date: 04/12/2023 Time: 17:20 Bed 9 Private MD: ED Physician Evin Smith HPI: 04/12 17:40 This 27 yrs old Female presents to ER via Ambulatory with complaints of Flu Symptoms. kb 17:40 Pt is a 27 year old female with no medical history who presents with bodyaches, fever, kb and sore throat that started yesterday. Denies cough, congestion, n/v/d. . Historical: - Allergies: 17:31 NKDA; ld1 - PMHx: 17:31 Anxiety; ld1 - PSHx: 17:31 cyst removed from feet; ld1 - Immunization history:: Adult Immunizations up to date. - Social history:: Smoking status: Patient denies any tobacco usage or history of. Patient/guardian denies using alcohol. ROS: 17:38 Respiratory: Negative for shortness of breath, cough, wheezing, and pleuritic chest kb pain, 17:38 Constitutional: Positive for body aches, chills, fever, malaise, 17:38 ENT: Positive for sore throat, 17:38 All other systems are negative, Exam: 17:38 Constitutional: This is a well developed, well nourished patient who is awake, alert, kb and in no acute distress. Head/Face: Normocephalic, atraumatic. ENT: Moist Mucous membranes Cardiovascular: Regular rate Respiratory: Respirations even and unlabored. No increased work of breathing. Talking in full sentences Abdomen/GI: Soft, non-tender. No distention Skin: Warm, dry with normal turgor. Normal color. MS/ Extremity: Pulses equal, no cyanosis. Neurovascular intact. Full, normal range of motion. Neuro: Awake and alert, GCS 15, oriented to person, place, time, and situation. Moves all extremities. Normal gait. Vital Signs: 17:30 BP 120 / 79; Pulse 126; Resp 18; Temp 102.2(O); Pulse Ox 98% on R/A; Weight 57.61 kg; ld1 Height 5 ft. 3 in. ; Pain 0/10; 19:07 Pulse 109; Resp 18; Temp 98(IR); Pulse Ox 98% ; ld1 17:30 Body Mass Index 22.50 (57.61 kg, 160.02 cm) ld1 17:30 Pain Scale: Adult ld1 MDM: 17:22 Patient medically screened. kb 17:39 Differential diagnosis: flu, covid, uri, strep. Data reviewed: vital signs, nurses kb notes. 18:48 Differential Diagnosis: Influenza Upper Respiratory Infection Sinusitis Other strep. kb Counseling: I had a detailed discussion with the patient and/or guardian regarding the historical points, exam findings, and any diagnostic results supporting the discharge/admit diagnosis, lab results, the need for outpatient follow up, a family practitioner, to return to the emergency department if symptoms worsen or persist or if there are any questions or concerns that arise at home. 04/12 17:31 Order name: Flu; Complete Time: 18:34 kb 04/12 17:31 Order name: SARS-COV-2 RT PCR; Complete Time: 18:22 kb 04/12 17:31 Order name: Strep; Complete Time: 18:34 kb 04/12 18:28 Order name: Throat Culture EDMS Administered Medications: 17:40 Drug: Acetaminophen PO 1000 mg PO once Route: PO; ld1 Disposition Summary: 04/12/23 18:49 Discharge Ordered Notes: Location: Home kb Condition: Stable kb Diagnosis - Acute upper respiratory infection, unspecified kb Followup: kb - With: Emergency Department - When: As needed - Reason: Worsening of condition Followup: kb - With: Private Physician - When: 2 - 3 days - Reason: Recheck today's complaints, Continuance of care, Re-evaluation by your physician Discharge Instructions: - Discharge Summary Sheet kb - Upper Respiratory Infection, Adult, [id number] kb - Viral Respiratory Infection, [id number] kb Forms: - Medication Reconciliation Form kb - Thank You Letter kb - Antibiotic Education kb - Prescription Opioid Use kb - Patient Portal Instructions kb - Leadership Thank You Letter kb Prescriptions: - Tamiflu 75 mg Oral capsule - take 1 tablet ORAL route every 12 hours for 5 days; 10 tablet; Refills: 0, kb Product Selection Permitted Signatures: Dispatcher [employer] EDMartha Rivera, Ewa Olivas RN RN ld1
--- NOTE | 2023-04-12 18:50 | ER ---
Nurse's Notes [facility] Name: Gladis Meza Age: 27 yrs Sex: Female : 1995 Arrival Date: 04/12/2023 Time: 17:20 Bed 9 Private MD: Diagnosis: Acute upper respiratory infection, unspecified Presentation: 04/12 17:30 Chief complaint: Patient states: body aches, fever X 0400 today. Coronavirus screen: At ld1 this time, the client does not indicate any symptoms associated with coronavirus-19. Ebola Screen: No symptoms or risks identified at this time. Initial Sepsis Screen: Does the patient meet any 2 criteria? No. Patient's initial sepsis screen is negative. Does the patient have a suspected source of infection? No. Patient's initial sepsis screen is negative. Risk Assessment: Do you want to hurt yourself or someone else? Patient reports no desire to harm self or others. Onset of symptoms was April 12, 2023. 17:30 Method Of Arrival: Ambulatory ld1 17:30 Acuity: HOLLI 4 ld1 Triage Assessment: 17:31 General: Appears in no apparent distress. uncomfortable, Behavior is calm, cooperative, ld1 appropriate for age. Pain: Denies pain. EENT: No signs and/or symptoms were reported regarding the EENT system. Neuro: Level of Consciousness is awake, alert, obeys commands, Oriented to person, place, time, situation. Cardiovascular: Capillary refill < 3 seconds Patient's skin is warm and dry. Respiratory: Airway is patent Respiratory effort is even, unlabored. GI: Abdomen is flat, non-distended. : No signs and/or symptoms were reported regarding the genitourinary system. Derm: Skin temperature is hot. Musculoskeletal: No signs and/or symptoms reported regarding the musculoskeletal system. Historical: - Allergies: 17:31 NKDA; ld1 - PMHx: 17:31 Anxiety; ld1 - PSHx: 17:31 cyst removed from feet; ld1 - Immunization history:: Adult Immunizations up to date. - Social history:: Smoking status: Patient denies any tobacco usage or history of. Patient/guardian denies using alcohol. Screenin:07 [facility] ED Fall Risk Assessment (Adult) History of falling in the last 3 months, ld1 including since admission No falls in past 3 months (0 pts) Confusion or Disorientation No (0 pts) Intoxicated or Sedated No (0 pts) Impaired Gait No (0 pts) Mobility Assist Device Used No (0 pt) Altered Elimination No (0 pt) Score/Fall Risk Level 0 - 2 = Low Risk Oriented to surroundings, Maintained a safe environment, Hourly rounding (assess needs \T\ fall precautionary measures) done. Abuse screen: Denies threats or abuse. Denies injuries from another. Nutritional screening: No deficits noted. Tuberculosis screening: No symptoms or risk factors identified. Vital Signs: 17:30 BP 120 / 79; Pulse 126; Resp 18; Temp 102.2(O); Pulse Ox 98% on R/A; Weight 57.61 kg; ld1 Height 5 ft. 3 in. ; Pain 0/10; 19:07 Pulse 109; Resp 18; Temp 98(IR); Pulse Ox 98% ; ld1 17:30 Body Mass Index 22.50 (57.61 kg, 160.02 cm) ld1 17:30 Pain Scale: Adult ld1 ED Course: 17:22 Patient arrived in ED. mr 17:22 Martha Vera, HAKEEM [facility]. kb 17:22 Evin Smith MD is Attending Physician. kb 17:30 Triage completed. ld1 17:31 Arm band placed on right wrist. ld1 17:33 Strep Sent. ld1 17:33 SARS-COV-2 RT PCR Sent. ld1 17:33 Flu Sent. ld1 17:40 Strep Sent. ld1 17:40 SARS-COV-2 RT PCR Sent. ld1 17:40 Flu Sent. ld1 19:07 No provider procedures requiring assistance completed. Patient did not have IV access ld1 during this emergency room visit. 19:08 Patient has correct armband on for positive identification. Provided Education on: ER ld1 process and procedures. . Administered Medications: 17:40 Drug: Acetaminophen PO 1000 mg PO once Route: PO; ld1 Medication: 19:07 VIS not applicable for this client. ld1 Outcome: 18:49 Discharge ordered by . kb 19:07 Discharged to home ambulatory, with family, ld1 19:07 Condition: good 19:07 Discharge instructions given to patient, Instructed on discharge instructions, follow up and referral plans. medication usage, Demonstrated understanding of instructions, follow-up care, medications, Prescriptions given X 1, 19:08 Patient left the ED. ld1 Signatures: Martha Vera, HAKEEM VALLE-Manda Becerra, Ewa Bennett, RN RN ld1
[2023-04-12 19:23] VITALS: BP 120/79; O2SAT 98
[2023-04-12 19:25] VITALS: TEMP 98
== END 2023-04-12 19:08 | disposition home or self-care (01) ==
LOC: ER 17:20
DX: J06.9 Acute upper respiratory infection, unspecified (principal); Z11.52 Encounter for screening for COVID-19
CPT/HCPCS: 87070; 87081; 87635; 87804; 99283

== ENCOUNTER 2024-03-09 13:49 | Emergency (ER) | payer OTHER, SELFPAY ==
[2024-03-09 14:44] LABS: SARS-CoV-2 Antigen CONTROL BLUE LINE VIS/BG OK; SARS-CoV-2 Antigen Rapid Res Negative (Negative)
--- NOTE | 2024-03-09 15:00 | ER ---
Nurse's Notes [facility] Name: Gladis Meza Age: 28 yrs Sex: Female : 1995 Arrival Date: 03/09/2024 Time: 13:49 Bed DIS4 Private MD: Diagnosis: Acute upper respiratory infection, unspecified Presentation: 03/09 14:20 Chief complaint: Patient states: sore throat , cough since last night , is 22 weeks iw . Coronavirus screen: Client presents with at least one sign or symptom that may indicate coronavirus-19. Ebola Screen: No symptoms or risks identified at this time. Initial Sepsis Screen: Does the patient meet any 2 criteria? HR > 90 bpm. Does the patient have a suspected source of infection? No. Patient's initial sepsis screen is negative. Risk Assessment: Do you want to hurt yourself or someone else? Patient reports no desire to harm self or others. Onset of symptoms was March 08, 2024. 14:20 Method Of Arrival: Ambulatory iw 14:20 Acuity: HOLLI 4 iw Historical: - Allergies: 14:21 NKDA; iw - PMHx: 14:21 Anxiety; iw - PSHx: 14:21 cyst removed from feet; iw - Immunization history:: Adult Immunizations not up to date. - Infectious Disease History:: Denies. - Social history:: Smoking status: Patient denies any tobacco usage or history of. Screenin:28 [facility] ED Fall Risk Assessment (Adult) History of falling in the last 3 months, db including since admission No falls in past 3 months (0 pts) Confusion or Disorientation No (0 pts) Intoxicated or Sedated No (0 pts) Impaired Gait No (0 pts) Mobility Assist Device Used No (0 pt) Altered Elimination No (0 pt) Score/Fall Risk Level 0 - 2 = Low Risk Oriented to surroundings, Maintained a safe environment. Abuse screen: Denies threats or abuse. Denies injuries from another. Nutritional screening: No deficits noted. Tuberculosis screening: No symptoms or risk factors identified. Assessment: 15:27 Reassessment: Patient appears in no apparent distress at this time. Patient and/or db family updated on plan of care and expected duration. Pain level reassessed. Patient is alert, oriented x 3, equal unlabored respirations, skin warm/dry/pink. General: Appears in no apparent distress. comfortable, Behavior is calm, cooperative. Pain: Denies pain. Neuro: Level of Consciousness is awake, alert, obeys commands, Oriented to person, place, time, situation. Respiratory: Airway is patent Respiratory effort is even, unlabored, Respiratory pattern is regular, symmetrical. Vital Signs: 14:20 BP 113 / 64; Pulse 114; Resp 19; Temp 97.6; Pulse Ox 97% on R/A; iw 15:28 BP 114 / 66; Pulse 99; Resp 16; Temp 97.8; Pulse Ox 97% on R/A; db ED Course: 13:54 Patient arrived in ED. mg5 13:56 Martha Vera FNP-C [facility]. kb 13:56 Tawny Nieves MD is Attending Physician. kb 14:21 Triage completed. iw 14:21 Arm band placed on. iw 15:27 Jalyn Antoine, RN is Primary Nurse. db 15:28 Patient has correct armband on for positive identification. Bed in low position. Call db light in reach. Side rails up X 1. Provided Education on: DISCHARGE. Pulse ox on. NIBP on. Warm blanket given. 15:28 No provider procedures requiring assistance completed. Patient did not have IV access db during this emergency room visit. Administered Medications: No medications were administered Medication: 15:28 VIS not applicable for this client. db Outcome: 14:59 Discharge ordered by MD. kb 15:28 Discharged to home ambulatory, db 15:28 Condition: stable 15:28 Discharge instructions given to patient, Instructed on discharge instructions, follow up and referral plans. 15:30 Patient left the ED. db Signatures: Martha Vera FNP-C FNP-Ckb Williams, Irene, RN RN iw Jalyn Antoine, RN RN Daniella Duffy mg5
--- NOTE | 2024-03-09 15:00 | EDPHYS ---
Physician Documentation [facility] Name: Gladis Meza Age: 28 yrs Sex: Female : 1995 Arrival Date: 03/09/2024 Time: 13:49 Bed DIS4 Private MD: ED Physician Tawny Nieves HPI: 03/09 14:07 This 28 yrs old Female presents to ER via Unassigned with complaints of Cough. kb 14:07 Pt is a 28 year old female who presents for cough and sore throat that started last kb night. Denies fever, n/v/d. States she was exposed to her mother who tested positive for covid yesterday. . Historical: - Allergies: 14:21 NKDA; iw - PMHx: 14:21 Anxiety; iw - PSHx: 14:21 cyst removed from feet; iw - Immunization history:: Adult Immunizations not up to date. - Infectious Disease History:: Denies. - Social history:: Smoking status: Patient denies any tobacco usage or history of. ROS: 14:06 Constitutional: As per HPI kb Exam: 14:06 Constitutional: This is a well developed, well nourished patient who is awake, alert, kb and in no acute distress. Head/Face: Normocephalic, atraumatic. ENT: Moist Mucous membranes Cardiovascular: Regular rate Respiratory: Respirations even and unlabored. No increased work of breathing. Talking in full sentences Skin: Warm, dry with normal turgor. Normal color. MS/ Extremity: Pulses equal, no cyanosis. Neurovascular intact. Full, normal range of motion. Neuro: Awake and alert, GCS 15, oriented to person, place, time, and situation. 14:06 ENT: Posterior pharynx: is normal, Vital Signs: 14:20 BP 113 / 64; Pulse 114; Resp 19; Temp 97.6; Pulse Ox 97% on R/A; iw 15:28 BP 114 / 66; Pulse 99; Resp 16; Temp 97.8; Pulse Ox 97% on R/A; db MDM: 13:56 Medical Screening Exam initiated kb 14:07 Differential Diagnosis: Other flu, covid, uri, strep. Data reviewed: vital signs, nurses notes. 14:59 I considered the following discharge prescriptions or medication management in the emergency department I discussed and recommended Over The Counter medications, Antibiotics: At this time antibiotics are not recommended, Antivirals: At this time, antivirals are not recommended. Counseling: I had a detailed discussion with the patient and/or guardian regarding the historical points, exam findings, and any diagnostic results supporting the discharge/admit diagnosis, lab results, the need for outpatient follow up, a family practitioner, to return to the emergency department if symptoms worsen or persist or if there are any questions or concerns that arise at home. 03/09 14:02 Order name: Flu; Complete Time: 14:52 iw 03/09 14:02 Order name: SARS-COV-2 Antigen Rapid; Complete Time: 14:52 iw 03/09 14:02 Order name: Strep iw 03/09 14:39 Order name: Throat Culture EDMS Administered Medications: No medications were administered Disposition Summary: 03/09/24 14:59 Discharge Ordered Notes: Location: [facility] Condition: Stable kb Diagnosis - Acute upper respiratory infection, unspecified kb Followup: kb - With: Emergency Department - When: As needed - Reason: Worsening of condition Followup: kb - With: Private Physician - When: 2 - 3 days - Reason: Recheck today's complaints, Continuance of care, Re-evaluation by your physician Discharge Instructions: - Discharge Summary Sheet kb - Upper Respiratory Infection, Adult, [id number] kb Forms: - Medication Reconciliation Form kb - Antibiotic Education kb - Prescription Opioid Use kb - Patient Portal Instructions kb - Leadership Thank You Letter kb Signatures: Dispatcher [employer] Martha Almanzar, COMMUNITY NUTRITION EDUCATOR-C COMMUNITY NUTRITION EDUCATOR-Bridgett Diaz, RN RN iw Corrections: (The following items were deleted from the chart) 14:02 14:02 Influenza Screen (A \T\ B)+BA.LAB.BRZ ordered. EDMS EDMS 14:02 14:02 SARS-COV-2 Antigen Rapid+I.LAB.BRZ ordered. EDMS EDMS 14:02 14:02 Group A Streptococcus Rapid Sc+BA.LAB.BRZ ordered. EDMS EDMS
[2024-03-09 15:35] VITALS: O2SAT 97
[2024-03-09 15:36] VITALS: BP 114/66; TEMP 97.8
== END 2024-03-09 15:30 | disposition home or self-care (01) ==
LOC: ER 13:49
DX: J06.9 Acute upper respiratory infection, unspecified (principal); Z11.52 Encounter for screening for COVID-19
CPT/HCPCS: 36415; 87070; 87081; 87804; 87811